=== PATIENT | female | born 1945 | race Caucasian/White ===

== ENCOUNTER 2023-01-28 11:10 | Outpatient (CLI) | payer MEDICARE, SELFPAY | END 2023-01-28 11:11 | disposition home or self-care (01) | LOC: AMB 01-31 10:32 | PROVIDERS: Visit Provider Family Medicine | DX: S09.90XA Unspecified injury of head, initial encounter (principal); Y04.0XXA Assault by unarmed brawl or fight, initial encounter; Y92.009 Unspecified place in unspecified non-institutional (private) residence as the place of occurrence of the external cause | CPT/HCPCS: A0425; A0429 ==

== ENCOUNTER 2023-01-28 11:31 | Observation (INO) | payer MEDICARE, SELFPAY ==
[2023-01-28] VITALS (41 sets, daily range): BP systolic 136–169; BP diastolic 57–88; PULSE 61–89; RESP 6–20; TEMP 36.2–36.8; O2SAT 93–98; BMI 23.8
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
--- NOTE | 2023-01-28 12:06 | ED.NURSE ---
Pt's daughter Nora called for an update. Pt verbal okay'd marketing copywriter to provide update. Update on pt condition provided to daughter.
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
[2023-01-28] MEDS: IBUPROFEN 200 MG TABLET 400 MG PO (12:36)
--- NOTE | 2023-01-28 13:04 | ED.NURSE ---
At this time, pt remains A&Ox4, CMS intact x4. Pupils remain PERRLA.
--- NOTE | 2023-01-28 13:10 | ED.NURSE ---
Addendum entered by Anthony Mcfadden RN 01/28/23 13:28: After MD Grove's assessment of lac, lac repair to be done with sutures rather than jan. Original Note: MD Grove in room for head lac repair with jan.
[2023-01-28 13:48] LABS: SARS PCR* Negative SARS-CoV-2 (Negative)
--- NOTE | 2023-01-28 13:49 | ED.NURSE ---
Pt ambulatory to restroom with minimal assistance of clinical nursing assistant.
--- NOTE | 2023-01-28 14:03 | ED.NURSE ---
Social Work in to speak with pt.
--- NOTE | 2023-01-28 14:20 | ED.NURSE ---
Report called to [facility].
[2023-01-28 14:28] LABS: Basophils Absolute Auto 0.03 K/uL (0.00-0.30); Basophils Percent Auto 0.3 % (0.0-3.0); Eosinophils Percent Auto 0.9 % (0.0-7.0); Hematocrit 40.2 % (33.0-51.0); Hemoglobin* 12.7 gm/dL (12.0-16.0); Immature Granulocytes Abs Auto 0.01 K/uL (0.00-0.30); Immature Granulocytes Pct Auto 0.1 %; Lymphocytes Percent Auto 10.2 % (20-44); Mean Corpuscular HGB Conc 32 gm/dL (32-36); Mean Corpuscular Hemoglobin 31 pg (26-34); Mean Corpuscular Volume 97 fL (80-100); Monocytes Percent Auto 5.2 % (0.0-11.0); Neutrophils Percent Auto 83.3 % (42.0-72.0); Platelet Count* 242 K/uL (140-440); RDW Coefficient of Variation % 13.6 % (11.5-15.5); Red Blood Count 4.14 m/uL (4.00-5.20); White Blood Count* 10.54 K/uL (4.50-11.00)
[2023-01-28 14:31] LABS: Slide Review Reflex No
[2023-01-28 14:40] LABS: Albumin* 3.9 g/dL (3.3-5.0); Chloride* 111 mmol/L (96-114); Potassium* 4.2 mmol/L (3.6-5.1); Sodium* 140 mmol/L (135-149)
[2023-01-28 14:42] LABS: Creatinine* 0.7 mg/dL (0.5-1.5); Estimated Glomerular Filt Rate 89 ml/min
[2023-01-28 14:43] LABS: Alanine Aminotransferase* 13 U/L (4-35); Alkaline Phosphatase* 117 U/L (40-150); Aspartate Amino Transferase* 26 U/L (12-35); Bilirubin Direct* 0.2 mg/dL (0.0-0.5); Bilirubin Total* 0.7 mg/dL (0.1-1.5); Blood Urea Nitrogen* 10 mg/dL (7-30); Calcium* 8.7 mg/dL (8.4-10.6); Carbon Dioxide* 22 mmol/L (20-32); Glucose* 98 mg/dL (60-115); INR 0.97 (0.91-1.10); Partial Thromboplastin Time* 27 Seconds (23-33); Prothrombin Time 13.4 Seconds; Total Protein* 7.3 g/dL (6.0-8.3)
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
--- NOTE | 2023-01-28 16:31 | CRLHL7_ITS ---
For Patients: As a result of the Cures Act, medical imaging exams and procedure reports are released immediately into your electronic medical record. You may view this report before your referring provider. If you have questions, please contact your health care provider. HISTORY: Shoulder pain. COMPARISON: None. FINDINGS: Three views of the right shoulder. There are moderate degenerative changes in the shoulder joints including narrowing and articular sclerosis of the glenohumeral joint space as well as narrowing and subchondral cystic changes of the subacromial joint space. No evidence for acute fracture or dislocation. Dictated by Romelia Klein MD @ 01/28/2023 6:38:24 PM (Electronically Signed)
--- NOTE | 2023-01-28 16:34 | CRLHL7_ITS ---
For Patients: As a result of the Century Cures Act, medical imaging exams and procedure reports are released immediately into your electronic medical record. You may view this report before your referring provider. If you have questions, please contact your health care provider. INDICATION: Bibasilar crackles TECHNIQUE: Chest radiograph 1 view COMPARISON: 08/20/2021 FINDINGS: Mediastinum: The mediastinum is normal in appearance. The heart silhouette is normal in size and morphology. Lung: Coarse interstitial infiltrates present bilaterally without interval change and consistent with pulmonary fibrosis. No sign of pleural effusion seen. No pneumothorax is identified. Bone and Soft tissue: Unremarkable for age. IMPRESSION: 1. Coarse interstitial infiltrates present bilaterally without interval change and consistent with pulmonary fibrosis. Dictated by Danny Mckoy MD @ 01/28/2023 6:42:16 PM Dictated by: Danny Mckoy MD @ 01/28/2023 18:42:21 (Electronically Signed)
[2023-01-28] MEDS: TETANUS/DIPHTH/PERTUSSIS 0.5 ML SYRINGE IM (18:35)
[2023-01-28] MEDS: ACETAMINOPHEN 325 MG TABLET 650 MG PO (21:46)
[2023-01-28] MEDS: SODIUM CHLORIDE 0.9 % (FLUSH) 10 ML SYRINGE 5 ML IVF (21:47)
--- NOTE | 2023-01-28 22:08 | PC.NURSE ---
[id number] Pt arrived to floor around 1500, neuros and admission completed. Pt denies chest pain, lightheaded/dizziness, headache and changes in vision. For approx 2 hours pt c/o burning numbness to bilateral feet which has since resolved. PRN tylenol administered x1. Pt ambulating with SBA to br, tolerating activity well. 7 external stitches present to head, no drainage noted. TDaP vaccination completed to [facility], pt tolerated well.
[2023-01-29 00:50] VITALS: BP 110/44; PULSE 59; PULSE 61; RESP 18; TEMP 36.2; O2SAT 95
[2023-01-29 03:30] VITALS: BP 121/45; PULSE 64; RESP 14; TEMP 36.7; O2SAT 95
[2023-01-29] MEDS: ACETAMINOPHEN 325 MG TABLET 650 MG PO (05:23)
--- NOTE | 2023-01-29 06:00 | CRLHL7_ITS ---
For Patients: As a result of the Century Cures Act, medical imaging exams and procedure reports are released immediately into your electronic medical record. You may view this report before your referring provider. If you have questions, please contact your health care provider. INDICATION: Follow-up subdural hematoma COMPARISON: January 28, 2023 at 11:50 a.m. TECHNIQUE: CT examination of the head was performed as axial sections without intravenous contrast. Images were obtained from the vertex of the skull through the skull base. The study was performed January 29, 2023 at 6:35 a.m.. Please note that all CT scans at this facility use dose modulation, iterative reconstruction, and/or weight-based dosing when appropriate to reduce radiation dose to as low as reasonably achievable. FINDINGS: Sulci and ventricles are overall of normal caliber for patient age. A left-sided subdural hematoma is again identified. This primarily overlies the left frontal convexity and maximally measures about 6 millimeters in depth. This is measured from axial series 2, image 35. This is essentially unchanged and has no significant mass effect upon the subjacent brain. No new or progressive hemorrhage. Left posterior frontal extra-axial mass 1.5 centimeters in greatest dimension probably a meningioma. MRI is offered for further evaluation at a clinically appropriate time. Re-demonstration of a known right frontal scalp laceration. No acute calvarial injury IMPRESSION: Left-sided subdural hematoma is essentially unchanged. Maximum depth is about 6 millimeters without significant mass effect upon the subjacent brain. No new or worsening hemorrhage. Findings likely representing a left posterior frontal meningioma measuring 1.5 centimeters. Follow-up evaluation of this is recommended at a clinically appropriate time. Please note that all CT scans at this facility use dose modulation, iterative reconstruction, and/or weight-based dosing when appropriate to reduce radiation dose to as low as reasonably achievable. Dictated by Bry Marrero MD @ 01/29/2023 7:05:38 AM (Electronically Signed)
--- NOTE | 2023-01-29 07:37 | PC.NURSE ---
Pt is alert and oriented x3.?Afebrile. Pt denies chest pain, SOB, and N/V. Pt reports 1/10 headache, managed with PRN Tylenol. Neuro checks have been unremarkable. Pt?s base lung sounds are slightly diminished with fine crackles.?Pt is tolerating a regular diet, voiding, and up SBA?to toilet.?Pt slept throughout most of night.?
[2023-01-29 08:04] VITALS: BP 137/67; PULSE 63; RESP 18; TEMP 36.8; O2SAT 97
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
[2023-01-29] MEDS: SODIUM CHLORIDE 0.9 % (FLUSH) 10 ML SYRINGE 5 ML IVF (09:43)
[2023-01-29 09:50] VITALS: BP 137/57; PULSE 69; RESP 14; TEMP 36.7
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
== END 2023-01-29 12:35 | disposition home or self-care (01) ==
LOC: ED 14:07 → MEDSURG 14:20
PROVIDERS: Admitting Provider Family Medicine; Emergency Provider Emergency Medicine; Visit Provider Family Medicine
DX: S06.5XAA Traumatic subdural hemorrhage with loss of consciousness status unknown, initial encounter (principal); S01.01XA Laceration without foreign body of scalp, initial encounter; I35.2 Nonrheumatic aortic (valve) stenosis with insufficiency; Y04.8XXA Assault by other bodily force, initial encounter; W18.09XA Striking against other object with subsequent fall, initial encounter; M79.641 Pain in right hand; D32.9 Benign neoplasm of meninges, unspecified; R01.1 Cardiac murmur, unspecified; R00.1 Bradycardia, unspecified; Z98.890 Other specified postprocedural states; Z98.84 Bariatric surgery status; Z90.89 Acquired absence of other organs; J84.10 Pulmonary fibrosis, unspecified; J98.4 Other disorders of lung
CPT/HCPCS: 12002; 36415; 70450; 71045; 72125; 73030; 73130; 80048; 80076; 85025; 85610; 85730; 87635; 90471; 90715; 93306; 99284; 99291; G0378; A9270; G0390

== ENCOUNTER 2023-02-20 10:07 | Emergency (ER) | payer MEDICARE, SELFPAY ==
[2023-02-20] VITALS (9 sets, daily range): BP systolic 130–151; BP diastolic 64–86; PULSE 60–77; RESP 18; TEMP 36.5; O2SAT 92–97; BMI 23.7
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
--- NOTE | 2023-02-20 10:51 | CRLHL7_ITS ---
For Patients: As a result of the Century Cures Act, medical imaging exams and procedure reports are released immediately into your electronic medical record. You may view this report before your referring provider. If you have questions, please contact your health care provider. CT ANGIOGRAM NECK DATE: 02/20/2023 CLINICAL HISTORY: Patient with left sided neck pain and disorientation. TECHNIQUE: Standard helical CT image acquisition of the neck up to the skull base after bolus intravenous contrast enhancement. 2D and 3D MIP images for post-processing were performed and interpreted on an independent workstation and 3D images were permanently archived. COMPARISON: CT same day. FINDINGS: There is moderate narrowing at the origin of the right subclavian artery. The origins of the rest of the great vessels from the aortic arch are patent. The origin of the right vertebral artery is patent. The origin of the left vertebral artery is patent. The common carotid arteries are patent. There is plaque without stenosis at the origin of the right internal carotid artery. There is plaque without stenosis at the origin of the left internal carotid artery. The rest of the cervical segments of the internal carotid arteries are patent up to the skull base. The left vertebral artery is dominant. The cervical segments of the vertebral arteries are patent up to the skull base. The visualized lung apices are unremarkable. The thyroid gland is unremarkable. The soft tissues of the neck are unremarkable. There are degenerative changes in the cervical spine. IMPRESSION: Moderate right subclavian artery origin stenosis. Patent rest of the cervical vasculature. Please note that all CT scans at this facility use dose modulation, iterative reconstruction, and/or weight-based dosing when appropriate to reduce radiation dose to as low as reasonably achievable. Dictated by: Benjamín Alvares MD @ 02/20/2023 11:57:37 (Electronically Signed)
--- NOTE | 2023-02-20 10:51 | CRLHL7_ITS ---
For Patients: As a result of the Century Cures Act, medical imaging exams and procedure reports are released immediately into your electronic medical record. You may view this report before your referring provider. If you have questions, please contact your health care provider. Indication: Left-sided neck pain with disorientation Technique: Volumetric multidetector CT images of the head were obtained without the administration of low osmolar intravenous contrast. Comparison: CT head January 29, 2023 Findings: There is a moderate left convexity subdural hematoma with effacement of the left cerebral hemisphere. There is demonstration of layering hematocrit level with dense material layering in a dependent fashion. There is no obvious hyperacute superimposed hemorrhage. There is approximately 6.5 millimeters of [id number] midline shift, new from comparison exam. There is age-related cortical atrophy with mild sulcal widening and ex vacuo dilatation of the lateral ventricles. There are chronic small vessel disease changes in the subcortical and periventricular white matter without lost khan-white differentiation. The orbits and their contents are grossly within normal limits. The bony calvarium is grossly intact. The paranasal sinuses are clear. The mastoid air cells are well aerated. Impression: Increased size of previously seen left convexity subdural hematoma from comparison measuring up to 1 centimeter with 6.5 millimeters of ikze-ks-cvshj midline shift. There is demonstration of layering hematocrit level commensurate with subacute hemorrhage. No obvious superimposed hyperacute hemorrhage is identified. Findings were discussed with Heather Parekh at 11:26 a.m. February 20, 20[address] Please note that all CT scans at this facility use dose modulation, iterative reconstruction, and/or weight-based dosing when appropriate to reduce radiation dose to as low as reasonably achievable. Dictated by Timothy Mullins MD @ 02/20/2023 11:26:48 AM (Electronically Signed)
--- NOTE | 2023-02-20 10:51 | CRLHL7_ITS ---
For Patients: As a result of the Century Cures Act, medical imaging exams and procedure reports are released immediately into your electronic medical record. You may view this report before your referring provider. If you have questions, please contact your health care provider. CT ANGIOGRAM HEAD DATE: 02/20/2023 CLINICAL HISTORY: Patient with disorientation. TECHNIQUE: Standard helical CT image acquisition through the intracranial circulation following intravenous administration of contrast material with bolus tracking. 2D and 3D MIP images for post-processing were performed and interpreted on an independent workstation and 3D images were permanently archived. COMPARISON: CT same day. FINDINGS: There is no proximal intracranial large vessel occlusion. There is no intracranial aneurysm. The right internal carotid artery is normal. The right middle cerebral artery and its branches are normal. The right anterior cerebral artery and its branches are normal. The left internal carotid artery is normal. The left middle cerebral artery and its branches are normal. The left anterior cerebral artery and its branches are normal. The anterior communicating artery is well visualized and appears normal. The right vertebral artery and PICA are normal. The left vertebral artery and PICA are normal. The left vertebral artery is dominant. The basilar artery is patent and appears normal. The right posterior cerebral artery is normal. The left posterior cerebral artery is normal. The visualized venous structures are patent. IMPRESSION: Patent proximal intracranial vasculature. Please note that all CT scans at this facility use dose modulation, iterative reconstruction, and/or weight-based dosing when appropriate to reduce radiation dose to as low as reasonably achievable. Dictated by: Benjamín Alvares MD @ 02/20/2023 11:59:22 (Electronically Signed)
[2023-02-20 11:15] LABS: Basophils Absolute Auto 0.04 K/uL (0.00-0.30); Basophils Percent Auto 0.5 % (0.0-3.0); Eosinophils Absolute Auto 0.19 K/uL (0.00-0.50); Eosinophils Percent Auto 2.6 % (0.0-7.0); Hematocrit 36.6 % (33.0-51.0); Hemoglobin* 11.8 gm/dL (12.0-16.0); Immature Granulocytes Abs Auto 0.01 K/uL (0.00-0.30); Immature Granulocytes Pct Auto 0.1 %; Mean Corpuscular HGB Conc 32 gm/dL (32-36); Mean Corpuscular Hemoglobin 32 pg (26-34); Mean Corpuscular Volume 98 fL (80-100); Monocytes Percent Auto 10.2 % (0.0-11.0); Neutrophils Absolute Auto 5.24 K/uL (1.7-7.0); Neutrophils Percent Auto 71.6 % (42.0-72.0); Platelet Count* 256 K/uL (140-440); RDW Coefficient of Variation % 14.9 % (11.5-15.5); Red Blood Count 3.75 m/uL (4.00-5.20); White Blood Count* 7.33 K/uL (4.50-11.00)
[2023-02-20 11:18] LABS: Slide Review Reflex No
[2023-02-20 11:18] LABS: Creatinine, Point-of-Care* 0.6 mg/dl (0.6-1.3)
[2023-02-20 11:28] LABS: Chloride* 110 mmol/L (96-114); Potassium* 4.1 mmol/L (3.6-5.1); Sodium* 140 mmol/L (135-149)
[2023-02-20 11:31] LABS: Carbon Dioxide* 22 mmol/L (20-32); Creatinine* 0.6 mg/dL (0.5-1.5); Estimated Glomerular Filt Rate 92 ml/min
[2023-02-20 11:32] LABS: Blood Urea Nitrogen* 14 mg/dL (7-30); Calcium* 8.2 mg/dL (8.4-10.6); Glucose* 79 mg/dL (60-115)
[2023-02-20 12:12] LABS: Appearance Urine Clear (Clear); Bilirubin Urine Negative (Negative); Blood Urine Negative (Negative); Color Urine Yellow (Yellow); Glucose Urine Negative (Negative); Ketones Urine Negative (Negative); Leukocyte Esterase Urine Negative (Negative); Nitrite Urine Negative (Negative); Protein Urine Negative (Negative); Urobilinogen Urine 0.2 (0.2-1.0); pH Urine 6.5 (5.0-8.5)
[2023-02-20 12:22] LABS: RBC Urine 0-2 (0-2); WBC Urine 0-2 (0-5)
--- NOTE | 2023-02-20 12:45 | PC.NURSE ---
report given to Paola at [facility] [place]
--- NOTE | 2023-02-20 13:08 | ED.NURSE ---
Pt keys left behind so her daughter can curing pickling packer her car later. Placed in a plastic bag, labeled, and placed in med room.
--- NOTE | 2023-02-20 13:27 | ED.NURSE ---
Pt's daughter arrived to pick and shovel man keys.
== END 2023-02-20 13:15 | disposition short-term general hospital (02) ==
PROVIDERS: Emergency Provider Family Medicine; PCP Family Medicine
DX: S06.5X0A Traumatic subdural hemorrhage without loss of consciousness, initial encounter (principal); W22.8XXA Striking against or struck by other objects, initial encounter
CPT/HCPCS: 36415; 70450; 70496; 70498; 72192; 80048; 81001; 82565; 85025; 93005; 99285; 99291; Q9967

== ENCOUNTER 2023-02-20 13:07 | Outpatient (CLI) | payer MEDICARE, SELFPAY | END 2023-02-20 13:08 | disposition home or self-care (01) | LOC: AMB 02-24 09:27 | PROVIDERS: PCP Family Medicine; Visit Provider Family Medicine | DX: I61.3 Nontraumatic intracerebral hemorrhage in brain stem (principal) | CPT/HCPCS: A0425; A0428 ==

== ENCOUNTER 2023-04-14 08:28 | Outpatient (RCR) | payer MEDICARE, SELFPAY | END 2023-05-19 13:20 | disposition home or self-care (01) | PROVIDERS: PCP Family Medicine; Visit Provider Family Medicine | DX: S80.11XA Contusion of right lower leg, initial encounter (principal); S39.92XA Unspecified injury of lower back, initial encounter; M62.81 Muscle weakness (generalized); Z51.89 Encounter for other specified aftercare | CPT/HCPCS: 97110; 97161; 97535 ==

== ENCOUNTER 2023-06-09 17:15 | Emergency (ER) | payer MEDICARE, SELFPAY ==
[2023-06-09 17:35] VITALS: BP 157/72; PULSE 65; RESP 16; TEMP 36.4; O2SAT 95; BMI 25.1
--- NOTE | 2023-06-09 17:57 | CRLHL7_ITS ---
For Patients: As a result of the Century Cures Act, medical imaging exams and procedure reports are released immediately into your electronic medical record. You may view this report before your referring provider. If you have questions, please contact your health care provider. INDICATION: Right calf pain and swelling. COMPARISON: Report of the ultrasound of the venous drainage of the right lower extremity from 08/23/2021. FINDINGS: Ultrasound of the venous drainage of both lower extremities was performed using real-time khan scale imaging (B mode 2D), color flow Doppler and spectral analysis. There is no evidence of deep venous thrombosis. There is normal antegrade flow from the posterior tibial and peroneal veins superiorly through the common femoral vein in both legs. There is normal augmentation and compressibility of these veins. The greater saphenous veins in both thighs are widely patent. IMPRESSION: No evidence of deep or superficial venous thrombosis on ultrasound examination of both lower extremities. Dictated by Jay Epstein MD @ 06/09/2023 8:10:28 PM (Electronically Signed)
--- NOTE | 2023-06-09 18:21 | ED.GENADULT ---
HPI - General Adult General Date Seen: 06/09/23 Chief complaint: Extremity Pain/Injury, Lower Stated complaint: Needs head CT, possible blood clot R leg Time Seen by Provider: 06/09/23 17:41 Source: patient Mode of arrival: ambulatory Limitations: no limitations History of Present Illness HPI narrative: Patient is a 77-year-old woman who presents saying that she has been having pain in her legs for a while now. She says that she gets pain after she does her physical therapy exercises that were recommended after she had brain surgery earlier this year. She does not get pain during the exercises. She says that she will get redness at her ankles where her socks hit. She is very frustrated because she is not supposed to take ibuprofen which she says is what helps her symptoms. She says that Tylenol gives her ?a buzz', and she has asked her neurologist when she can stop taking Tylenol, but she says that she was told she would need a bunch of tests to determine when she could stop taking Tylenol and it was going to cost 250 dollars so she did not want to do that. As result, she has continued to take Tylenol and she says that makes her leg symptoms worse. She says she looked on [employer] and she has all the symptoms of blood clots and wants to make sure that she rules this out. She does note that as of today her symptoms are all gone. She also tells me that her clinic doctor told her that she was going to call the ER and ask us to do a head CT to make sure that everything looked good after her surgery, she says that the clinic was going to do it but then told her that they could not do it from the clinic and she should come to the ER instead. Related Data Previous Rx's Medication Instructions Recorded acetaminophen 325 mg tablet 650 mg (2 x 325 mg) PO Q6H PRN 01/29/23 Pain #100 tabs Allergies Allergy/AdvReac Type Severity Reaction Status Date / Time hydroxyzine AdvReac Severe Seizure Verified 06/09/23 17:31 Review of Systems Status of ROS: Reports: 6 or more systems reviewed and unremarkable except as noted in History and below [facility] Medical History History of depression ?Z86.59 - Personal history of other mental and behavioral disorders (ICD-10) Sinus bradycardia ?R00.1 - Bradycardia, unspecified (ICD-10) Pulmonary fibrosis ?J84.10 - Pulmonary fibrosis, unspecified (ICD-10) Meningioma ?D32.9 - Benign neoplasm of meninges, unspecified (ICD-10) Rheumatic fever with cardiac involvement ?I01.9 - Acute rheumatic heart disease, unspecified (ICD-10) Bibasilar crackles ?R09.89 - Other specified symptoms and signs involving the circulatory and respiratory systems (ICD-10) Murmur, cardiac ?R01.1 - Cardiac murmur, unspecified (ICD-10) Seizures ?R56.9 - Unspecified convulsions (ICD-10) Surgical History History of gastric bypass (1986) ?Z98.84 - Bariatric surgery status (ICD-10) History of section (1986) ?Z98.891 - History of uterine scar from previous surgery (ICD-10) Hx of tonsillectomy ?Z90.89 - Acquired absence of other organs (ICD-10) Family History Sister Breast cancer Scleroderma Seizure Father Major depression Grandfather Stroke Grandmother Stroke Social History Narrative: Lifelong nontobacco user. Denies alcohol use or recreational drugs. Does not have regular exercise regimen. 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 Smoking Status: Never smoker How often do you have a drink containing alcohol: never How often do you have six or more drinks on one occasion: Never AUDIT-C Alcohol total score: 0 Non-prescribed substance use: denies use Caffeine: Yes (soda) service: No Exam Narrative: Exam Narrative: Vital signs as noted above. In general, an alert, well-appearing patient. Head: Normocephalic, atraumatic. Eyes: Pupils are equal reactive. Extraocular movements are full. Conjunctivae are normal. ENT: Mucous membranes are moist. Neck: Supple without lymphadenopathy. Heart: Regular rate and rhythm. No murmur or rub. Lungs: Clear bilaterally. No increased work of breathing, crackles or wheezes. Abdomen: Soft and nontender. No organomegaly. Extremities: Well perfused. No edema. No calf tenderness. Pulses intact. Neurologic: Patient is alert and oriented to person and place. Speech is fluent. Face is symmetric. Moves all extremities equally. Affect: Normal. Skin: Warm and dry. Well perfused. Const: Vital Signs, click to edit/add: Vital Signs - 24 hr 06/09/23 17:35 Temperature 97.6 F Pulse Rate [Pulse Oximeter] 65 Respiratory Rate 16 Blood Pressure [Ri ght Upper Arm] 157/72 H Pulse Oximetry 95 Oxygen Delivery Me thod Room Air Course Course Hospital Course: Discussed with her that I would not recommend doing head CT today given that she is wanting to do this just as a follow-up to see how things look after surgery. If she would like to discuss that further with her primary doctor she certainly can. We did not receive any kind of call from Dr. Newell, and it is not accurate that this could not be ordered from the clinic if so desired. In terms of her legs, her exam is normal. I will order ultrasounds to make sure she does not have any evidence of DVT. Otherwise, it does not sound like she has evidencing claudication given that she does not have pain during exercise. She has good pulses. She does not have any evidence of decreased circulation today. No evidence of cellulitis. If ultrasounds are negative and symptoms return, would have her discuss this with primary care. Radiology read of her ultrasound is negative. Discharge home, primary care follow-up for ongoing concerns. Vital Signs Vital signs: Initial Vital Signs Temperature 97.6 F 06/09/23 17:35 Temperature Source Temporal Artery Scan 06/09/23 17:35 Pulse Rate 65 06/09/23 17:35 Pulse Rhythm Regular 06/09/23 17:35 Pulse Strength 3+ Normal 06/09/23 17:35 Respiratory Rate 16 06/09/23 17:35 Blood Pressure 157/72 H 06/09/23 17:35 Blood Pressure Mean 100 06/09/23 17:35 Blood Pressure Position Sitting 06/09/23 17:35 Pulse Oximetry 95 06/09/23 17:35 Oxygen Delivery Method Room Air 06/09/23 17:35 Vital Signs Temperature 97.6 F 06/09/23 17:35 Pulse Rate 65 06/09/23 17:35 Respiratory Rate 16 06/09/23 17:35 Blood Pressure 157/72 H 06/09/23 17:35 Pulse Oximetry 95 06/09/23 17:35 Oxygen Delivery Method Room Air 06/09/23 17:35 Temperature 97.6 F 06/09/23 17:35 Pulse Rate 65 06/09/23 17:35 Respiratory Rate 16 06/09/23 17:35 Blood Pressure 157/72 H 06/09/23 17:35 Pulse Oximetry 95 06/09/23 17:35 Oxygen Delivery Method Room Air 06/09/23 17:35 Discharge Plan Discharge Clinical Impression: Leg pain Patient Disposition: Home, Self-Care Condition: Improved Instructions: Leg Cramps (ED) Additional Instructions: Your ultrasound today does not show any evidence of blood clots in either leg. You do not have to take Tylenol if you do not want to. Follow-up with Dr. Newell as needed for ongoing concerns. Prescriptions: No Action acetaminophen 325 mg Tablet 650 mg PO Q6H PRN (Reason: Pain) Qty: 100 0RF Follow Up/Referrals: Sada Newell DO [Primary Care Provider] - Stand Alone Forms: [facility] Info Instructions
--- NOTE | 2023-06-09 18:32 | ED.NURSE ---
Pt changed into gown, per U/S request. Pt up to BR. [place] available at bedside for Pt comfort.
== END 2023-06-09 20:02 | disposition home or self-care (01) ==
PROVIDERS: Emergency Provider Emergency Medicine; PCP Family Medicine
DX: M79.606 Pain in leg, unspecified (principal)
CPT/HCPCS: 93970; 99283; 99284

== ENCOUNTER 2023-11-23 14:26 | Emergency (ER) | payer MEDICARE, SELFPAY ==
[2023-11-23 14:36] VITALS: BP 192/70; PULSE 67; RESP 20; TEMP 36.8; O2SAT 97; BMI 23.0
[2023-11-23 15:08] LABS: Appearance Urine Clear (Clear); Bilirubin Urine Negative (Negative); Blood Urine Trace-intact (Negative); Color Urine Yellow (Yellow); Glucose Urine Negative (Negative); Ketones Urine Negative (Negative); Leukocyte Esterase Urine 1+ (Negative); Nitrite Urine Negative (Negative); Protein Urine Negative (Negative); Specific Gravity Urine <= 1.005 (1.000-1.030); Urobilinogen Urine 0.2 (0.2-1.0); pH Urine 5.5 (5.0-8.5)
[2023-11-23 15:19] LABS: Bacteria Urine Moderate; RBC Urine 0-2 (0-2); Squamous Epithelial Cell Urine Few (None-Few)
--- NOTE | 2023-11-23 15:26 | CRLHL7_ITS ---
For Patients: As a result of the Century Cures Act, medical imaging exams and procedure reports are released immediately into your electronic medical record. You may view this report before your referring provider. If you have questions, please contact your health care provider. CLINICAL HISTORY: Right lower extremity leg pain TECHNIQUE: A compression venous ultrasound exam was performed of the right lower extremity using khan-scale imaging, color Doppler and spectral Doppler analysis. FINDINGS: Sonographic imaging of the right lower extremity demonstrates normal compressibility and color Doppler venous blood flow within the common femoral vein, deep femoral vein, and the proximal greater saphenous vein. Within the thigh, the femoral vein is patent and compressible. At a lower level, the popliteal and posterior tibial veins also show normal compressibility and color Doppler venous blood flow. Limited imaging of the contralateral groin demonstrates a normal spectral waveform and color Doppler venous blood flow within the left common femoral vein. IMPRESSION: No evidence of deep vein thrombosis within the right lower extremity. Dictated by Mara Steele MD @ 11/23/2023 5:33:33 PM (Electronically Signed)
--- NOTE | 2023-11-23 15:28 | ED.GENADULT ---
HPI - General Adult General Chief complaint: Extremity Pain/Injury, Lower Stated complaint: Right Leg and hip pain Time Seen by Provider: 11/23/23 15:04 History of Present Illness HPI narrative: This 78-year-old female comes in reporting pain in her right lower extremity that began this morning upon awakening. She does not report any injury event or strenuous activity. She states that the pain is located mostly below her knee but at times it shoots up from her knee also toward her hip. She states that there is a level of constant pain but sometimes there is significant brief increase in pain. She is ambulatory. She is not on any anticoagulants. Related Data Previous Rx's Medication Instructions Recorded acetaminophen 325 mg tablet 650 mg (2 x 325 mg) PO Q6H PRN 01/29/23 Pain #100 tabs hydrocodone 5 mg-acetaminophen 325 1 tab PO Q4-6H PRN pain #10 tabs 11/23/23 mg tablet Allergies Allergy/AdvReac Type Severity Reaction Status Date / Time hydroxyzine AdvReac Severe Seizure Verified 06/09/23 17:31 Review of Systems Status of ROS: Reports: 10 or more systems reviewed and unremarkable except as noted in History and below Narrative: Constitutional: No fevers, no weight gain or loss. Eyes: No discharge. No vision changes. HENT: No congestion, no sore throat, no ear pain. Cardiovascular: No chest pain, no palpitations. Respiratory: No shortness of breath, no wheezes, no cough. Gastrointestinal: No abdominal pain, no vomiting, no diarrhea. Genitourinary: No dysuria, no hematuria. Musculoskeletal: Normal range of motion. Skin: No rashes, no pruritis. Neurological: No dizziness, weakness, sensory change, speech change. Endo/Heme/Allergies: No bruising or bleeding. No polydipsia. Pysch: no suicidality, no anxiety, no insomnia. All other systems reviewed and are negative. [facility] Medical History History of depression ?Z86.59 - Personal history of other mental and behavioral disorders (ICD-10) Sinus bradycardia ?R00.1 - Bradycardia, unspecified (ICD-10) Pulmonary fibrosis ?J84.10 - Pulmonary fibrosis, unspecified (ICD-10) Meningioma ?D32.9 - Benign neoplasm of meninges, unspecified (ICD-10) Rheumatic fever with cardiac involvement ?I01.9 - Acute rheumatic heart disease, unspecified (ICD-10) Bibasilar crackles ?R09.89 - Other specified symptoms and signs involving the circulatory and respiratory systems (ICD-10) Murmur, cardiac ?R01.1 - Cardiac murmur, unspecified (ICD-10) Seizures ?R56.9 - Unspecified convulsions (ICD-10) Surgical History History of gastric bypass (1986) ?Z98.84 - Bariatric surgery status (ICD-10) History of section (1986) ?Z98.891 - History of uterine scar from previous surgery (ICD-10) Hx of tonsillectomy ?Z90.89 - Acquired absence of other organs (ICD-10) Family History Sister Breast cancer Scleroderma Seizure Father Major depression Grandfather Stroke Grandmother Stroke Social History Narrative: Lifelong nontobacco user. Denies alcohol use or recreational drugs. Does not have regular exercise regimen. 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 Smoking Status: Never smoker Do you use any of these nicotine containing products: None How often do you have a drink containing alcohol: never How often do you have six or more drinks on one occasion: Never AUDIT-C Alcohol total score: 0 Non-prescribed substance use: denies use Caffeine: Yes (soda) service: No Exam Narrative: Exam Narrative: Constitutional: Well-developed, well-nourished, no acute distress. HEENT: Normocephalic, atraumatic. Neck: Normal range of motion. Nontender. Supple. Heart: Regular. No murmurs. Normal rate. Intact distal pulses. Lungs: Clear to auscultation. No chest discomfort. No wheezes, rhonchi, or rales. Abdomen: Normal bowel sounds. Nontender. No rebound tenderness. Genitalia: Deferred. Back: No midline tenderness. Normal range of motion. Extremities: Normal range of motion. No injury. She is able to lift her right leg from the bed. No pain when log-rolling her leg or stressing her pelvis. Skin: Intact. No rash. Warm. No erythema or pallor. Neurologic: No altered sensation. No weakness. Alert and oriented. Psychiatric: No suicidality. No anxiety or depression. No insomnia. Nursing notes and vitals signs are reviewed. Const: Vital Signs, click to edit/add: Vital Signs - 24 hr 11/23/23 14:36 Temperature 98.2 F Pulse Rate [Pulse Oximeter] 67 Respiratory Rate 20 Blood Pressure [Ri ght Forearm] 192/70 H Pulse Oximetry 97 Oxygen Delivery Me thod Room Air Course Vital Signs Vital signs: Initial Vital Signs Temperature 98.2 F 11/23/23 14:36 Temperature Source Temporal Artery Scan 11/23/23 14:36 Pulse Rate 67 11/23/23 14:36 Pulse Rhythm Regular 11/23/23 14:36 Respiratory Rate 20 11/23/23 14:36 Blood Pressure 192/70 H 11/23/23 14:36 Blood Pressure Mean 110 H 11/23/23 14:36 Blood Pressure Position Sitting 11/23/23 14:36 Pulse Oximetry 97 11/23/23 14:36 Oxygen Delivery Method Room Air 11/23/23 14:36 Vital Signs Temperature 98.2 F 11/23/23 14:36 Pulse Rate 67 11/23/23 14:36 Respiratory Rate 20 11/23/23 14:36 Blood Pressure 192/70 H 11/23/23 14:36 Pulse Oximetry 97 11/23/23 14:36 Oxygen Delivery Method Room Air 11/23/23 14:36 Temperature 98.2 F 11/23/23 14:36 Pulse Rate 67 11/23/23 14:36 Respiratory Rate 20 11/23/23 14:36 Blood Pressure 192/70 H 11/23/23 14:36 Pulse Oximetry 97 11/23/23 14:36 Oxygen Delivery Method Room Air 11/23/23 14:36 Medical Decision Making MDM Narrative Medical decision making narrative: This patient comes in reporting pain in her right lower extremity. She is concerned about a blood clot. An ultrasound is completed and shows no evidence of thrombus. Patient has a normal exam and there was no particular injury event. She states that she does have a previous report that there was some degenerative change in her right hip joint. She awoke with pain today and may have some home acquired some nerve impingement causing shooting pain down her leg. She is ambulatory and able to be discharged home. I advised her to follow-up with orthopedic clinic if not improving. She did receive a prescription for some tablets of [place]. Lab Data Labs: Lab Results 11/23/23 Range/Units 15:03 Urine Color Yellow (Yellow) Urine Appearance Clear (Clear) Urine pH 5.5 (5.0-8.5) Ur Specific [place] <= 1.005 (1.000-1.030) Urine Protein Negative (Negative) Urine Glucose (UA) Negative (Negative) Urine Ketones Negative (Negative) Urine Blood Trace-intact A (Negative) Urine Nitrite Negative (Negative) Urine Bilirubin Negative (Negative) Urine Urobilinogen 0.2 (0.2-1.0) Ur Leukocyte Esterase 1+ A (Negative) Urine RBC 0-2 (0-2) Urine WBC 5-10 A (0-5) Ur Squamous Epith Cells Few (None-Few) Urine Bacteria Moderate A (None) Discharge Plan Discharge Clinical Impression: Acute leg pain Patient Disposition: Home, Self-Care Condition: Stable Additional Instructions: Take medication as needed and indicated. Follow-up with orthopedic clinic if not improving or worsening. Call [phone] for appointment. Prescriptions: New hydrocodone-acetaminophen 5-325 mg tablet 1 tab PO Q4-6H PRN (Reason: pain) Qty: 10 0RF No Action acetaminophen 325 mg Tablet 650 mg PO Q6H PRN (Reason: Pain) Qty: 100 0RF Follow Up/Referrals: Sada Newell DO [Primary Care Provider] - Stand Alone Forms: [employer] Info Instructions
--- NOTE | 2023-11-24 01:36 | ED.NURSE ---
Patient called questing assistance with what she should do for the worsening pain in her leg since discharge. She states that the pain medication that was prescribed is not helping and that she has already taken 2 doses. Patient stated that she wanted to take ibuprofen but wasn't sure if she could with the prescribed medications. Patient educated that she can take the ibuprofen if that is not contraindicated by her PCP on a regular basis. Patient states that she feels like her foot is just a brick and that she is having some numbness. RN stated to the patient that if she was unable to manage the pain at home or that her symptoms where changing that she should be seen again for the changes in her condition.
== END 2023-11-23 17:36 | disposition home or self-care (01) ==
PROVIDERS: Emergency Provider Emergency Medicine Emergency Medical Services; PCP Family Medicine
DX: M79.661 Pain in right lower leg (principal)
CPT/HCPCS: 81001; 87086; 87186; 93971; 99283; 99284

== ENCOUNTER 2023-11-24 08:33 | Emergency (ER) | payer MEDICARE, SELFPAY ==
[2023-11-24 08:41] VITALS: BP 180/84; PULSE 60; RESP 18; TEMP 36.6; O2SAT 97; BMI 21.5
--- NOTE | 2023-11-24 08:51 | ED.GENADULT ---
HPI - General Adult General Time Seen by Provider: 08:51 Date Seen: 11/24/23 Chief complaint: Extremity Pain/Injury, Lower Stated complaint: pain in R leg, thinks she also has a brain bleed Time Seen by Provider: 11/24/23 08:43 Source: patient and RN notes reviewed Mode of arrival: ambulatory Limitations: no limitations History of Present Illness HPI narrative: Patient is a 78-year-old female whom essentially tells me immediately that she is demanding a head CT. I ask her to please back up in slow down, would like to understand her history better. I did review with her that I had reviewed old records, was aware that she did have a brain bleed in February of 2023. She had had a brain bleed in January, the february head CT showed increasing subdural. She ended up at [facility] they do report she had surgery. She woke up with right leg pain yesterday, essentially is bothering her more when she tries to walk. She gets sharp shooting pain from her knee down into the foot. The longer she is up, will feel it up into the hip and into her right buttock. She did have motor changes when she had her subdural hematoma, reports she was having problems lifting her leg. She does seem frustrated, refers back into the history where she has been refused a head CT reportedly. I really have no clue as to these events. Reviewed with her that I certainly can do a head CT today, particularly with her history and increased headache. She denies any recent falls, no new trauma. Her daughter is with her. I have reviewed her ED visit from yesterday where she had an ultrasound of the leg and there was no DVT. She was prescribed Vicodin. In the nursing notes it states she did not try this overnight. She does tell me that she tried it. She is still having pain in the leg and is here for that, also once a head CT. There is no reported numbness tingling. It is pain in the leg with ambulation inactivity, no reported motor issues at this time. Related Data Previous Rx's Medication Instructions Recorded acetaminophen 325 mg tablet 650 mg (2 x 325 mg) PO Q6H PRN 01/29/23 Pain #100 tabs hydrocodone 5 mg-acetaminophen 325 1 tab PO Q4-6H PRN pain #10 tabs 02/11/24 mg tablet ondansetron HCl 4 mg tablet 4 mg PO Q6H PRN nausea and 11/24/23 vomiting #10 tabs oxycodone 5 mg tablet 5 mg PO Q6H PRN pain #10 tabs 11/24/23 prednisone 20 mg tablet 20 mg PO BID #10 tabs 11/24/23 Allergies Allergy/AdvReac Type Severity Reaction Status Date / Time hydroxyzine AdvReac Severe Seizure Verified 06/09/23 17:31 Review of Systems Status of ROS: Reports: 6 or more systems reviewed and unremarkable except as noted in History and below [facility] Medical History History of depression ?Z86.59 - Personal history of other mental and behavioral disorders (ICD-10) Sinus bradycardia ?R00.1 - Bradycardia, unspecified (ICD-10) Pulmonary fibrosis ?J84.10 - Pulmonary fibrosis, unspecified (ICD-10) Meningioma ?D32.9 - Benign neoplasm of meninges, unspecified (ICD-10) Rheumatic fever with cardiac involvement ?I01.9 - Acute rheumatic heart disease, unspecified (ICD-10) Bibasilar crackles ?R09.89 - Other specified symptoms and signs involving the circulatory and respiratory systems (ICD-10) Murmur, cardiac ?R01.1 - Cardiac murmur, unspecified (ICD-10) Seizures ?R56.9 - Unspecified convulsions (ICD-10) Surgical History History of gastric bypass (1986) ?Z98.84 - Bariatric surgery status (ICD-10) History of section (1986) ?Z98.891 - History of uterine scar from previous surgery (ICD-10) Hx of tonsillectomy ?Z90.89 - Acquired absence of other organs (ICD-10) Family History Sister Breast cancer Scleroderma Seizure Father Major depression Grandfather Stroke Grandmother Stroke Social History Narrative: Lifelong nontobacco user. Denies alcohol use or recreational drugs. Does not have regular exercise regimen. 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 Smoking Status: Never smoker Do you use any of these nicotine containing products: None How often do you have a drink containing alcohol: never How often do you have six or more drinks on one occasion: Never AUDIT-C Alcohol total score: 0 Non-prescribed substance use: denies use Caffeine: Yes (soda) service: No Exam Const: Vital Signs, click to edit/add: Vital Signs - 24 hr 11/24/23 08:41 Temperature 97.9 F Pulse Rate [Pulse Oximeter] 60 Respiratory Rate 18 Blood Pressure [Ri ght Upper Arm] 180/84 H Pulse Oximetry 97 Oxygen Delivery Me thod Room Air Soledad is alert, interactive, no apparent distress. Pupils are equal, small, conjugate gaze, sclera clear. Symmetrical facial function. Speech is normal. CV regular rate and rhythm, no murmur, breathing easily on room air, speech is normal. Lungs are clear, no wheezing or crackles. Lower extremities without edema, no overlying skin changes. Range of motion of her right knee does not reproduce any pain, there is no joint effusion. Internal and external rotation of her hip do not reproduce her pain. Strength in her lower extremities is 5/5 and symmetric, normal light touch sensation. No changes of skin coloration or warmth on either side. She has a positive straight leg raise on the right which gives her sharp shooting pain reportedly in the right lower extremity. Documenting provider has reviewed patient's vital signs: yes Course Course ED Course: Patient is convinced that her brain bleed is back and is causing her right leg symptoms. I did review with her that we certainly will be getting a head CT. There is certainly an alternate explanation which is sciatica which I suspect more given her current symptoms. We will do lumbar x-rays. Have reviewed with her for head CT showing no changes, she is going to need to except treatment for sciatica. I have reviewed that there is no quick fix for sciatica. Will review this further with her once I have her head CT and her lumbar x-rays. Reevaluation(s) Time of Reevaluation #1: 10:17 Reevaluation #1: Have discussed with them that the head CT is indeed negative for any intracranial bleeding. Did review that her exam is consistent with a lumbar radiculopathy. I do see degenerative changes. I do not think that this is vascular in nature at all. She has clinical exam consistent with radiculopathy. Did discuss conservative management, expectations with a conservative management. She states Tylenol just does not work for her. Reviewed with her that I do recommend trying this baseline. She is nauseated, likely the Vicodin has cause some nausea. She does not feel it helped at all. Will have her put the Vicodin away, will try Zofran an oxycodone. Discussed prednisone is mainstay and treatment for this as the anti-inflammatory affect is needed. She does use ibuprofen at home. Reviewed with her that ibuprofen actually can increase risk of bleeding. They are thinking it was Tylenol. Discussed the need for physical therapy and follow up in clinic. Reviewed MRI indications, we do not do this emergently out of the ER in this nature. She does need to watch for motor complications and this was reviewed. Will provide handout. Vital Signs Vital signs: Initial Vital Signs Temperature 97.9 F 11/24/23 08:41 Temperature Source Temporal Artery Scan 11/24/23 08:41 Pulse Rate 60 11/24/23 08:41 Respiratory Rate 18 11/24/23 08:41 Blood Pressure 180/84 H 11/24/23 08:41 Blood Pressure Mean 116 H 11/24/23 08:41 Pulse Oximetry 97 11/24/23 08:41 Oxygen Delivery Method Room Air 11/24/23 08:41 Vital Signs Temperature 97.9 F 11/24/23 08:41 Pulse Rate 60 11/24/23 08:41 Respiratory Rate 18 11/24/23 08:41 Blood Pressure 180/84 H 11/24/23 08:41 Pulse Oximetry 97 11/24/23 08:41 Oxygen Delivery Method Room Air 11/24/23 08:41 Temperature 97.9 F 11/24/23 08:41 Pulse Rate 60 11/24/23 08:41 Respiratory Rate 18 11/24/23 08:41 Blood Pressure 180/84 H 11/24/23 08:41 Pulse Oximetry 97 11/24/23 08:41 Oxygen Delivery Method Room Air 11/24/23 08:41 Medications Administered Medications: Discontinued Medications Generic Name Dose Route Start Last Admin Trade Name Freq PRN Reason Stop Dose Admin Ondansetron HCl 4 mg 11/24/23 10:14 11/24/23 10:34 Ondansetron Odt 4 Mg Tab PO 11/24/23 10:15 4 mg ONCE ONE Administration Oxycodone HCl 5 mg 11/24/23 10:14 11/24/23 10:33 Oxycodone 5 Mg Tablet PO 11/24/23 10:15 5 mg ONCE ONE Administration Medical Decision Making Imaging Data CT scan - head: Attestation: I have reviewed the pertinent imaging results. My impression: I do not see any acute bleeds or traumatic change on her head CT, reviewed the old CT from February, could see her subdural hematoma at that point. Radiologist's impression: Verbal report per the radiologist is that her head CT is negative for subdural or bleed. The radiology system is down, this was read by the in-house radiologist that we do have here at this time. Formal written report is not available. XR lumbar spine: Attestation: I have reviewed the pertinent imaging results. My impression: I do see degenerative changes, decreased disc space between L5-S1. There is also calcifications noted of the vasculature. Await Radiology over-read. Radiologist's impression: Patient: Soledad Lyn MR#: [id number] : 1945 Acct:[id number] Loc: ED Service Date: 11/24/[address]: Ordering Physician: Norma Chen M.D. Date of Service: 11/24/23 Procedure(s): XR lumbar spine 2-3V Accession Number(s): [id number] cc: Norma Chen M.D.; Sada Newell D.O.~ LUMBAR SPINE THREE VIEWS. COMPARISON: CT CHEST 08/20/2021. INDICATION: RIGHT SCIATICA. FINDINGS: CHRONIC WEDGE COMPRESSION DEFORMITY T12. NO ADDITIONAL FRACTURE. VASCULAR CALCIFICATIONS. POSTOP CHANGES. DEGENERATE FACET ARTHROPATHY. RIGHTWARD CURVATURE. IMPRESSION: NO ACUTE FRACTURE. Final report reviewed after patient discharge, no change in plan. Discharge Plan Discharge Clinical Impression: Acute right lumbar radiculopathy Headache Qualifiers: Headache type: unspecified Headache chronicity pattern: acute headache Patient Disposition: Home, Self-Care Condition: Stable Instructions: Lumbar Radiculopathy (ED) Additional Instructions: Start prednisone and take as prescribed. Recommend taking the prednisone with food to help protect her stomach. Baseline for pain, recommend Tylenol 1000 mg 3 times a day, can use for 1-2 weeks. Will send a new prescription for oxycodone in, use as prescribed. This is narcotic. May need to use MiraLax and or senna to prevent narcotic associated constipation while using this medicine. Can supplement with ibuprofen per bottle directions if it is okay from a prior neurologic standpoint from your history of a brain bleed. You obviously have been taking it without complication as of this point. Need to schedule physical therapy, referral provided. You need a clinic follow-up within the next week, please contact either [place] or [facility] to get this scheduled. If your symptoms are not improving with outlined measures, MRI of your spine may need to be obtained. This would be ordered through the clinic. Will send in Zofran to help with any nausea, narcotic certainly can make people nauseated as well. Stop the hydrocodone/acetaminophen (norco/vicodin are the brand names) while on the oxycodone. Activity Level: Activity as Tolerated Prescriptions: New oxycodone 5 mg tablet 5 mg PO Q6H PRN (Reason: pain) Qty: 10 0RF prednisone 20 mg tablet 20 mg PO BID Qty: 10 0RF ondansetron HCl 4 mg tablet 4 mg PO Q6H PRN (Reason: nausea and vomiting) Qty: 10 0RF No Action acetaminophen 325 mg Tablet 650 mg PO Q6H PRN (Reason: Pain) Qty: 100 0RF hydrocodone-acetaminophen 5-325 mg tablet 1 tab PO Q4-6H PRN (Reason: pain) Qty: 10 0RF Follow Up/Referrals: Sada Newell DO [Primary Care Provider] - Stand Alone Forms: [employer] Info Instructions
--- NOTE | 2023-11-24 09:05 | XR_ITS ---
LUMBAR SPINE THREE VIEWS. COMPARISON: CT CHEST 08/20/2021. INDICATION: RIGHT SCIATICA. FINDINGS: CHRONIC WEDGE COMPRESSION DEFORMITY T12. NO ADDITIONAL FRACTURE. VASCULAR CALCIFICATIONS. POSTOP CHANGES. DEGENERATE FACET ARTHROPATHY. RIGHTWARD CURVATURE. IMPRESSION: NO ACUTE FRACTURE.
--- NOTE | 2023-11-24 09:05 | CT_ITS ---
CT BRAIN WITHOUT CONTRAST TECHNIQUE: ROUTINE NONCONTRAST CT BRAIN COMPARISON: 02/20/2023 INDICATION: HEADACHE, HISTORY BRAIN BLEED FINDINGS: THERE IS NO ACUTE INTRACRANIAL HEMORRHAGE. POSTOP CHANGES LEFT FRONTAL CRANIECTOMY. NO MIDLINE SHIFT OR HYDROCEPHALUS. CHRONIC LACUNAR INFARCT. CHRONIC MILD SMALL VESSEL ISCHEMIC CHANGES. SINUSES CLEAR. IMPRESSION: NO ACUTE INTRACRANIAL HEMORRHAGE. COMMUNICATED TO THE EMERGENCY DOCTOR..
[2023-11-24] MEDS: OXYCODONE 5 MG TABLET PO (10:33)
[2023-11-24] MEDS: ONDANSETRON ODT 4 MG TAB PO (10:34)
--- NOTE | 2023-11-25 08:41 | ED.NURSE ---
Urine culture came back as Klebsiella pneumoniae from 11/23/23. Spoke with pt- she was having frequency, urgency, burning on Friday. Drank a bunch of water and seems better. Per Dr. Beltran, treat with Kephlex 250mg BID X5 days and encourage patient to follow up with PCP in the next week. Pt wanted it called into [facility]. This was completed.
== END 2023-11-24 10:54 | disposition home or self-care (01) ==
PROVIDERS: Emergency Provider Family Medicine; PCP Family Medicine
DX: M54.16 Radiculopathy, lumbar region (principal); R51.9 Headache, unspecified
CPT/HCPCS: 70450; 72100; 99284; 99285; A9270

== ENCOUNTER 2023-11-26 11:36 | Emergency (ER) | payer MEDICARE, SELFPAY ==
[2023-11-26 11:44] VITALS: BP 185/87; PULSE 66; RESP 18; TEMP 37.3; O2SAT 95; BMI 23.6
--- NOTE | 2023-11-26 12:18 | XR_ITS ---
INDICATION Fall, pain. TECHNIQUE AP pelvis and 2 views right hip. COMPARISON: 02/05/2023 FINDINGS Narrowing and spurring at the right hip joint. No femoral neck fracture. Incidental synovial herniation pit. Mild degenerative changes at the sacroiliac joints and symphysis pubis. IMPRESSION Moderate degenerative joint disease right hip. No sign of acute injury.
--- NOTE | 2023-11-26 12:19 | ED_ITS ---
HPI - Fall General Chief Complaint: Fall/Minor Trauma Stated Complaint: Fall Time Seen by Provider: 11/26/23 12:08 History of Present Illness HPI Narrative: This 78-year-old female comes in for evaluation of an injury from a fall that occurred just prior to arrival. She states that she was using her walker and had difficulty crossing a threshold and fell onto her right buttock. She did not hit her head or have loss of consciousness. She states that she was able to get up and ambulate. She does not report any other injury. Related Data Previous Rx's Medication Instructions Recorded acetaminophen 325 mg tablet 650 mg (2 x 325 mg) PO Q6H PRN 01/29/23 Pain #100 tabs hydrocodone 5 mg-acetaminophen 325 1 tab PO Q4-6H PRN pain #10 tabs 11/23/23 mg tablet ondansetron HCl 4 mg tablet 4 mg PO Q6H PRN nausea and 11/24/23 vomiting #10 tabs oxycodone 5 mg tablet 5 mg PO Q6H PRN pain #10 tabs 11/24/23 prednisone 20 mg tablet 20 mg PO BID #10 tabs 11/24/23 Allergies Allergy/AdvReac Type Severity Reaction Status Date / Time hydroxyzine AdvReac Severe Seizure Verified 06/09/23 17:31 Review of Systems Status of ROS: Reports: 10 or more systems reviewed and unremarkable except as noted in History and below Narrative: Constitutional: No fevers, no weight gain or loss. Eyes: No discharge. No vision changes. HENT: No congestion, no sore throat, no ear pain. Cardiovascular: No chest pain, no palpitations. Respiratory: No shortness of breath, no wheezes, no cough. Gastrointestinal: No abdominal pain, no vomiting, no diarrhea. Genitourinary: No dysuria, no hematuria. Musculoskeletal: Normal range of motion. She reports some pain in the right bu ttock. Skin: No rashes, no pruritis. Neurological: No dizziness, weakness, sensory change, speech change. Endo/Heme/Allergies: No bruising or bleeding. No polydipsia. Pysch: no suicidality, no anxiety, no insomnia. All other systems reviewed and are negative. [facility] Medical History History of depression ?Z86.59 - Personal history of other mental and behavioral disorders (ICD-10) Sinus bradycardia ?R00.1 - Bradycardia, unspecified (ICD-10) Pulmonary fibrosis ?J84.10 - Pulmonary fibrosis, unspecified (ICD-10) Meningioma ?D32.9 - Benign neoplasm of meninges, unspecified (ICD-10) Rheumatic fever with cardiac involvement ?I01.9 - Acute rheumatic heart disease, unspecified (ICD-10) Bibasilar crackles ?R09.89 - Other specified symptoms and signs involving the circulatory and respiratory systems (ICD-10) Murmur, cardiac ?R01.1 - Cardiac murmur, unspecified (ICD-10) Seizures ?R56.9 - Unspecified convulsions (ICD-10) Surgical History History of gastric bypass (1986) ?Z98.84 - Bariatric surgery status (ICD-10) History of section (1986) ?Z98.891 - History of uterine scar from previous surgery (ICD-10) Hx of tonsillectomy ?Z90.89 - Acquired absence of other organs (ICD-10) Family History Sister Breast cancer Scleroderma Seizure Father Major depression Grandfather Stroke Grandmother Stroke Social History Narrative: Lifelong nontobacco user. Denies alcohol use or recreational drugs. Does not have regular exercise regimen. 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 Smoking Status: Never smoker Do you use any of these nicotine containing products: None How often do you have a drink containing alcohol: never How often do you have six or more drinks on one occasion: Never AUDIT-C Alcohol total score: 0 Non-prescribed substance use: denies use Caffeine: Yes (soda) service: No Exam Narrative: Exam Narrative: Constitutional: Well-developed, well-nourished, no acute distress. HEENT: Normocephalic, atraumatic. Neck: Normal range of motion. Nontender. Supple. Heart: Regular. No murmurs. Normal rate. Intact distal pulses. Lungs: Clear to auscultation. No chest discomfort. No wheezes, rhonchi, or rales. Abdomen: Normal bowel sounds. Nontender. No rebound tenderness. Genitalia: Deferred. Back: No midline tenderness. Normal range of motion. Extremities: Normal range of motion. No sign of injury. I am able to logroll her right leg without pain. She is able to raise her right leg from the bed without difficulty. Skin: Intact. No rash. Warm. No erythema or pallor. Neurologic: No altered sensation. No weakness. Alert and oriented. Psychiatric: No suicidality. No anxiety or depression. No insomnia. Nursing notes and vitals signs are reviewed. Const: Vital Signs, click to edit/add: Vital Signs - 24 hr 11/26/23 11:44 11/26/23 13:49 Temperature 99.2 F Pulse Rate [Pulse Oximeter] 66 71 Respiratory Rate 18 20 Blood Pressure [Ri ght Upper Arm] 185/87 H 170/90 H Pulse Oximetry 95 96 Oxygen Delivery Me thod Room Air Room Air Course Vital Signs Vital signs: Initial Vital Signs Temperature 99.2 F 11/26/23 11:44 Temperature Source Temporal Artery Scan 11/26/23 11:44 Pulse Rate 66 11/26/23 11:44 Respiratory Rate 18 11/26/23 11:44 Blood Pressure 185/87 H 11/26/23 11:44 Blood Pressure Mean 119 H 11/26/23 11:44 Pulse Oximetry 95 11/26/23 11:44 Oxygen Delivery Method Room Air 11/26/23 11:44 Vital Signs Temperature 99.2 F 11/26/23 11:44 Pulse Rate 66 11/26/23 11:44 Respiratory Rate 18 11/26/23 11:44 Blood Pressure 185/87 H 11/26/23 11:44 Pulse Oximetry 95 11/26/23 11:44 Oxygen Delivery Method Room Air 11/26/23 11:44 Temperature 99.2 F 11/26/23 11:44 Pulse Rate 71 11/26/23 13:49 Respiratory Rate 20 11/26/23 13:49 Blood Pressure 170/90 H 11/26/23 13:49 Pulse Oximetry 96 11/26/23 13:49 Oxygen Delivery Method Room Air 11/26/23 13:49 Medications Administered Medications: Discontinued Medications Generic Name Dose Route Start Last Admin Trade Name Freq PRN Reason Stop Dose Admin Acetaminophen 500 mg 11/26/23 13:37 11/26/23 13:47 Acetaminophen 500 Mg Tablet PO 11/26/23 13:38 Not Given ONCE ONE Ibuprofen 600 mg 11/26/23 13:37 11/26/23 13:47 Ibuprofen 200 Mg Tablet PO 11/26/23 13:38 Not Given ONCE ONE MDM - Fall MDM Narrative Medical decision making narrative: This patient comes in for evaluation of a fall that occurred prior to arrival. She is reporting some discomfort in the right buttock area. She was able to get up and ambulate after the fall. At the time of my initial exam also she did not have any pain when log-rolling her leg and she was able to lift this leg up off the bed without any difficulty. X-ray imaging by my review with radiology report pending shows no acute findings. The patient is okay to be discharged home to resume current plans. Discharge Plan Discharge Clinical Impression: Contusion of right buttock Patient Disposition: Home w/ Parent or Adult Condition: Stable Additional Instructions: Continue current plans. Use medications as prescribed and needed. Follow up with MD return if worsening. Prescriptions: No Action acetaminophen 325 mg Tablet 650 mg PO Q6H PRN (Reason: Pain) Qty: 100 0RF oxycodone 5 mg tablet 5 mg PO Q6H PRN (Reason: pain) Qty: 10 0RF prednisone 20 mg tablet 20 mg PO BID Qty: 10 0RF ondansetron HCl 4 mg tablet 4 mg PO Q6H PRN (Reason: nausea and vomiting) Qty: 10 0RF hydrocodone-acetaminophen 5-325 mg tablet 1 tab PO Q4-6H PRN (Reason: pain) Qty: 10 0RF Follow Up/Referrals: Sada Newell DO [Primary Care Provider] - Stand Alone Forms: [employer] Info Instructions
[2023-11-26 13:49] VITALS: BP 170/90; PULSE 71; RESP 20; O2SAT 96
== END 2023-11-26 14:29 | disposition home or self-care (01) ==
PROVIDERS: Emergency Provider Emergency Medicine Emergency Medical Services; PCP Family Medicine
DX: S30.0XXA Contusion of lower back and pelvis, initial encounter (principal); W18.30XA Fall on same level, unspecified, initial encounter
CPT/HCPCS: 73502; 99283; 99284

== ENCOUNTER 2024-03-26 21:07 | Emergency (ER) | payer MEDICARE, SELFPAY ==
[2024-03-26] VITALS (7 sets, daily range): BP systolic 173–197; BP diastolic 82–98; PULSE 70–74; RESP 14–18; TEMP 36.4; O2SAT 94–96
--- NOTE | 2024-03-26 21:29 | ED.GENADULT ---
HPI - General Adult General Chief complaint: Shoulder Injury/Pain Stated complaint: L shoulder, arm pain Time Seen by Provider: 03/26/24 21:11 History of Present Illness HPI narrative: No chest pain, no shortness of breath. Pt complaint of shoulder pain to neck. No reported trauma . Pain rated 8 /10. Pain increases when laying flat. No reports of being dizzy. Pain started 1830 78-year-old woman presenting to the emergency department with concern of neck and shoulder area pain. Initially started aching in her left mid arm and then seemed to move to a shoulder then across her left chest and it into her throat. Can hurt a little bit when she swallows. No ill exposures. No particular injury. She is not short of breath. Not actually with difficulty swallowing. No complaint of lightheadedness. No weakness. Discomfort began about 3 hours prior to this evaluation. Related Data Home Medications ?Medication ?Instructions ?Recorded ?Confirmed No Known Home Medications 03/27/24 03/27/24 Allergies Allergy/AdvReac Type Severity Reaction Status Date / Time hydroxyzine AdvReac Severe Seizure Verified 03/27/24 13:30 Review of Systems Status of ROS: Reports: 6 or more systems reviewed and unremarkable except as noted in History and below [facility] Medical History History of depression ?Z86.59 - Personal history of other mental and behavioral disorders (ICD-10) Sinus bradycardia ?R00.1 - Bradycardia, unspecified (ICD-10) Pulmonary fibrosis ?J84.10 - Pulmonary fibrosis, unspecified (ICD-10) Meningioma ?D32.9 - Benign neoplasm of meninges, unspecified (ICD-10) Rheumatic fever with cardiac involvement ?I01.9 - Acute rheumatic heart disease, unspecified (ICD-10) Bibasilar crackles ?R09.89 - Other specified symptoms and signs involving the circulatory and respiratory systems (ICD-10) Murmur, cardiac ?R01.1 - Cardiac murmur, unspecified (ICD-10) Seizures ?R56.9 - Unspecified convulsions (ICD-10) Surgical History History of gastric bypass (1986) ?Z98.84 - Bariatric surgery status (ICD-10) History of section (1986) ?Z98.891 - History of uterine scar from previous surgery (ICD-10) Hx of tonsillectomy ?Z90.89 - Acquired absence of other organs (ICD-10) Family History Sister Breast cancer Scleroderma Seizure Father Major depression Grandfather Stroke Grandmother Stroke Social History Narrative: Lifelong nontobacco user. Denies alcohol use or recreational drugs. Does not have regular exercise regimen. 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 Smoking Status: Never smoker Do you use any of these nicotine containing products: None Second hand tobacco smoke exposure: No How often do you have a drink containing alcohol: never How often do you have six or more drinks on one occasion: Never AUDIT-C Alcohol total score: 0 Non-prescribed substance use: denies use Caffeine: Yes (soda) service: No Exam Narrative: Exam Narrative: Of good energy. Direct in her conversation. Breathing easily. Lungs are clear. There is no supraclavicular crepitus. I do not appreciate any palpable masses or swelling. Oropharynx is unremarkable without swelling or erythema. Strong and equal carotid upstroke. Heart in regular rate and rhythm. Systolic crescendo murmur. Mild tenderness in the left trapezius. Moving all extremities out difficulty. Normal sensation and well-perfused. Const: Vital Signs, click to edit/add: Vital Signs - 24 hr 03/26/24 21:17 03/26/24 21:50 03/26/24 22:05 Temperature 97.5 F L Pulse Rate 74 Pulse Rate [Left P ulse Oximeter] 70 Respiratory Rate 18 14 Blood Pressure 197/93 H Blood Pressure [Ri ght Upper Arm] 193/82 H Pulse Oximetry 95 95 94 Oxygen Delivery Me thod Room Air 03/26/24 22:32 03/26/24 23:02 03/26/24 23:32 Temperature Pulse Rate 73 74 74 Pulse Rate [Left P ulse Oximeter] Respiratory Rate 16 14 16 Blood Pressure 186/98 H 173/95 H 175/93 H Blood Pressure [Ri ght Upper Arm] Pulse Oximetry 95 95 96 Oxygen Delivery Me thod 03/26/24 23:46 Temperature 97.5 F L Pulse Rate Pulse Rate [Left P ulse Oximeter] 70 Respiratory Rate 16 Blood Pressure Blood Pressure [Ri ght Upper Arm] 193/82 H Pulse Oximetry Oxygen Delivery Tx thod Documenting provider has reviewed patient's vital signs: yes Course Vital Signs Vital signs: Initial Vital Signs Temperature 97.5 F L 03/26/24 21:17 Temperature Source Temporal Artery Scan 03/26/24 21:17 Pulse Rate 70 03/26/24 21:17 Pulse Rhythm Regular 03/26/24 21:17 Respiratory Rate 18 03/26/24 21:17 Blood Pressure 193/82 H 03/26/24 21:17 Blood Pressure Mean 119 H 03/26/24 21:17 Blood Pressure Position Sitting 03/26/24 21:17 Pulse Oximetry 95 03/26/24 21:17 Oxygen Delivery Method Room Air 03/26/24 21:17 Vital Signs Temperature 97.5 F L 03/26/24 21:17 Pulse Rate 70 03/26/24 21:17 Respiratory Rate 18 03/26/24 21:17 Blood Pressure 193/82 H 03/26/24 21:17 Pulse Oximetry 95 03/26/24 21:17 Oxygen Delivery Method Room Air 03/26/24 21:17 Temperature 97.5 F L 03/26/24 23:46 Pulse Rate 70 03/26/24 23:46 Respiratory Rate 16 03/26/24 23:46 Blood Pressure 193/82 H 03/26/24 23:46 Pulse Oximetry 96 03/26/24 23:32 Oxygen Delivery Method Room Air 03/26/24 21:17 Medications Administered Medications: Discontinued Medications Generic Name Dose Route Start Last Admin Trade Name Freq PRN Reason Stop Dose Admin Morphine Sulfate 2 mg 03/26/24 21:38 03/26/24 21:49 Morphine 2 Mg/Ml Inj IVP 03/26/24 21:39 2 mg ONCE ONE Administration Medical Decision Making MDM Narrative Medical decision making narrative: Not so clearly reproducible to make me think that this is musculoskeletal. Is this murmur entry level account representative of a dissection? Holding on aspirin for now with this in mind. EKG looks to be nonspecific in sinus at 71 and similar to prior but I am concerned about evolution. Ischemic cardiovascular disease? Giving morphine for pain Pneumothorax or pneumomediastinum? Repeat EKG unchanged at a rate of 67. No indication of pericarditis. Chest x-ray reviewed by me without pneumothorax or apparent pneumomediastinum. No infiltrate. Normal cardiac silhouette INDICATION: Upper left chest area pain TECHNIQUE: Chest radiograph 1 view COMPARISON: None FINDINGS: The sensitivity and specificity of the exam are moderately limited by the patient`s body habitus. Mediastinum: The mediastinum is normal in appearance. The heart silhouette is normal in size and morphology. Lung: The right apex is obscured by the patient`s chin. Small lung volumes with mild diffuse reticulonodular interstitial opacities are present. No sign of pleural effusion seen. No pneumothorax is identified. Bone and Soft tissue: Unremarkable for age. IMPRESSION: 1. Small lung volumes with mild diffuse reticulonodular interstitial opacities are present. Findings may be due to interstitial lung disease and/or interstitial edema. Discomfort has settled. Delayed in getting results. Labs are unremarkable, reassuring other than a D-dimer which is elevated at 1.43. No further events. Ms. Lyn does not want to stay for further evaluation. Do not have an explanation clearly for this discomfort. Might benefit from CTA of the chest in particular which she ultimately is declining, insisting to go home. See patient discharge plan for further discussion. Medical Records Medical records reviewed: Yes I reviewed the patient's medical records Lab Data Lab results reviewed: Yes I reviewed the patient's lab results Labs: Lab Results 03/26/24 03/26/24 03/26/24 Range/Units 21:38 21:50 21:50 WBC 7.57 (4.50-11.00) K/uL RBC 3.89 L (4.00-5.20) m/uL Hgb 11.8 L (12.0-16.0) gm/dL Hct 37.3 (33.0-51.0) % MCV 96 (80-100) fL MCH 30 (26-34) pg MCHC 32 (32-36) gm/dL RDW Coeff of Miquel 13.4 (11.5-15.5) % Plt Count 253 (140-440) K/uL Neut % (Auto) 76.4 H (42.0-72.0) % Lymph % (Auto) 14.4 L (20-44) % Clayton % (Auto) 6.7 (0.0-11.0) % Eos % (Auto) 2.0 (0.0-7.0) % Baso % (Auto) 0.4 (0.0-3.0) % Neut # (Auto) 5.80 (1.7-7.0) K/uL Lymph # (Auto) 1.10 (0.90-2.90) K/uL Clayton # (Auto) 0.50 (0.00-0.90) K/UL Eos # (Auto) 0.15 (0.00-0.50) K/uL Baso # (Auto) 0.03 (0.00-0.30) K/uL Abs Immat Gran (auto) 0.01 (0.00-0.30) K/uL Imm/Tot Granulo (auto) 0.1 % D-Dimer Quant (PE/DVT) 1.43 H (0.00-0.50) ug/ml Sodium 140 (135-149) mmol/L Potassium 3.6 (3.6-5.1) mmol/L Chloride 109 (96-114) mmol/L Carbon Dioxide 24 (20-32) mmol/L Anion Gap 7 (7-15) mEq/L BUN 15 (7-30) mg/dL Creatinine 0.7 (0.5-1.5) mg/dL Estimated GFR 88 ml/min Glucose 104 (60-115) mg/dL Calcium 8.4 (8.4-10.6) mg/dL Magnesium 2.1 Cancelled (1.5-2.6) mg/dL Total Bilirubin 0.6 (0.1-1.5) mg/dL Direct Bilirubin (0.0-0.5) mg/dL AST (12-35) U/L ALT (4-35) U/L Alkaline Phosphatase (40-150) U/L Troponin I (0.01-0.04) ng/mL C-Reactive Protein (0.5-1.0) mg/dL NT-Pro-B Natriuret Pep pg/mL Total Protein (6.0-8.3) g/dL Albumin (3.3-5.0) g/dL POC Troponin I (0.01-0.04) ng/ml 03/26/24 03/26/24 03/26/24 Range/Units 21:50 21:50 21:50 WBC (4.50-11.00) K/uL RBC (4.00-5.20) m/uL Hgb (12.0-16.0) gm/dL Hct (33.0-51.0) % MCV (80-100) fL MCH (26-34) pg MCHC (32-36) gm/dL RDW Coeff of Miquel (11.5-15.5) % Plt Count (140-440) K/uL Neut % (Auto) (42.0-72.0) % Lymph % (Auto) (20-44) % Clayton % (Auto) (0.0-11.0) % Eos % (Auto) (0.0-7.0) % Baso % (Auto) (0.0-3.0) % Neut # (Auto) (1.7-7.0) K/uL Lymph # (Auto) (0.90-2.90) K/uL Clayton # (Auto) (0.00-0.90) K/UL Eos # (Auto) (0.00-0.50) K/uL Baso # (Auto) (0.00-0.30) K/uL Abs Immat Gran (auto) (0.00-0.30) K/uL Imm/Tot Granulo (auto) % D-Dimer Quant (PE/DVT) (0.00-0.50) ug/ml Sodium (135-149) mmol/L Potassium (3.6-5.1) mmol/L Chloride (96-114) mmol/L Carbon Dioxide (20-32) mmol/L Anion Gap (7-15) mEq/L BUN (7-30) mg/dL Creatinine (0.5-1.5) mg/dL Estimated GFR ml/min Glucose (60-115) mg/dL Calcium (8.4-10.6) mg/dL Magnesium (1.5-2.6) mg/dL Total Bilirubin Cancelled (0.1-1.5) mg/dL Direct Bilirubin 0.3 Cancelled (0.0-0.5) mg/dL AST 22 Cancelled (12-35) U/L ALT 9 (4-35) U/L Alkaline Phosphatase (40-150) U/L Troponin I (0.01-0.04) ng/mL C-Reactive Protein (0.5-1.0) mg/dL NT-Pro-B Natriuret Pep pg/mL Total Protein (6.0-8.3) g/dL Albumin (3.3-5.0) g/dL POC Troponin I (0.01-0.04) ng/ml 03/26/24 03/26/24 03/26/24 Range/Units 21:50 21:50 21:50 WBC (4.50-11.00) K/uL RBC (4.00-5.20) m/uL Hgb (12.0-16.0) gm/dL Hct (33.0-51.0) % MCV (80-100) fL MCH (26-34) pg MCHC (32-36) gm/dL RDW Coeff of Miquel (11.5-15.5) % Plt Count (140-440) K/uL Neut % (Auto) (42.0-72.0) % Lymph % (Auto) (20-44) % Clayton % (Auto) (0.0-11.0) % Eos % (Auto) (0.0-7.0) % Baso % (Auto) (0.0-3.0) % Neut # (Auto) (1.7-7.0) K/uL Lymph # (Auto) (0.90-2.90) K/uL Clayton # (Auto) (0.00-0.90) K/UL Eos # (Auto) (0.00-0.50) K/uL Baso # (Auto) (0.00-0.30) K/uL Abs Immat Gran (auto) (0.00-0.30) K/uL Imm/Tot Granulo (auto) % D-Dimer Quant (PE/DVT) (0.00-0.50) ug/ml Sodium (135-149) mmol/L Potassium (3.6-5.1) mmol/L Chloride (96-114) mmol/L Carbon Dioxide (20-32) mmol/L Anion Gap (7-15) mEq/L BUN (7-30) mg/dL Creatinine (0.5-1.5) mg/dL Estimated GFR ml/min Glucose (60-115) mg/dL Calcium (8.4-10.6) mg/dL Magnesium (1.5-2.6) mg/dL Total Bilirubin (0.1-1.5) mg/dL Direct Bilirubin (0.0-0.5) mg/dL AST (12-35) U/L ALT Cancelled (4-35) U/L Alkaline Phosphatase 108 Cancelled (40-150) U/L Troponin I < 0.01 L Cancelled (0.01-0.04) ng/mL C-Reactive Protein < 0.5 L (0.5-1.0) mg/dL NT-Pro-B Natriuret Pep 549 pg/mL Total Protein (6.0-8.3) g/dL Albumin (3.3-5.0) g/dL POC Troponin I (0.01-0.04) ng/ml 03/26/24 03/26/24 03/26/24 Range/Units 21:50 21:50 21:50 WBC (4.50-11.00) K/uL RBC (4.00-5.20) m/uL Hgb (12.0-16.0) gm/dL Hct (33.0-51.0) % MCV (80-100) fL MCH (26-34) pg MCHC (32-36) gm/dL RDW Coeff of Miquel (11.5-15.5) % Plt Count (140-440) K/uL Neut % (Auto) (42.0-72.0) % Lymph % (Auto) (20-44) % Clayton % (Auto) (0.0-11.0) % Eos % (Auto) (0.0-7.0) % Baso % (Auto) (0.0-3.0) % Neut # (Auto) (1.7-7.0) K/uL Lymph # (Auto) (0.90-2.90) K/uL Clayton # (Auto) (0.00-0.90) K/UL Eos # (Auto) (0.00-0.50) K/uL Baso # (Auto) (0.00-0.30) K/uL Abs Immat Gran (auto) (0.00-0.30) K/uL Imm/Tot Granulo (auto) % D-Dimer Quant (PE/DVT) (0.00-0.50) ug/ml Sodium (135-149) mmol/L Potassium (3.6-5.1) mmol/L Chloride (96-114) mmol/L Carbon Dioxide (20-32) mmol/L Anion Gap (7-15) mEq/L BUN (7-30) mg/dL Creatinine (0.5-1.5) mg/dL Estimated GFR ml/min Glucose (60-115) mg/dL Calcium (8.4-10.6) mg/dL Magnesium (1.5-2.6) mg/dL Total Bilirubin (0.1-1.5) mg/dL Direct Bilirubin (0.0-0.5) mg/dL AST (12-35) U/L ALT (4-35) U/L Alkaline Phosphatase (40-150) U/L Troponin I (0.01-0.04) ng/mL C-Reactive Protein (0.5-1.0) mg/dL NT-Pro-B Natriuret Pep Cancelled pg/mL Total Protein 7.5 Cancelled (6.0-8.3) g/dL Albumin 4.1 Cancelled (3.3-5.0) g/dL POC Troponin I 0.01 (0.01-0.04) ng/ml 03/26/24 Range/Units 23:21 WBC (4.50-11.00) K/uL RBC (4.00-5.20) m/uL Hgb (12.0-16.0) gm/dL Hct (33.0-51.0) % MCV (80-100) fL MCH (26-34) pg MCHC (32-36) gm/dL RDW Coeff of Miquel (11.5-15.5) % Plt Count (140-440) K/uL Neut % (Auto) (42.0-72.0) % Lymph % (Auto) (20-44) % Clayton % (Auto) (0.0-11.0) % Eos % (Auto) (0.0-7.0) % Baso % (Auto) (0.0-3.0) % Neut # (Auto) (1.7-7.0) K/uL Lymph # (Auto) (0.90-2.90) K/uL Clayton # (Auto) (0.00-0.90) K/UL Eos # (Auto) (0.00-0.50) K/uL Baso # (Auto) (0.00-0.30) K/uL Abs Immat Gran (auto) (0.00-0.30) K/uL Imm/Tot Granulo (auto) % D-Dimer Quant (PE/DVT) (0.00-0.50) ug/ml Sodium (135-149) mmol/L Potassium (3.6-5.1) mmol/L Chloride (96-114) mmol/L Carbon Dioxide (20-32) mmol/L Anion Gap (7-15) mEq/L BUN (7-30) mg/dL Creatinine (0.5-1.5) mg/dL Estimated GFR ml/min Glucose (60-115) mg/dL Calcium (8.4-10.6) mg/dL Magnesium (1.5-2.6) mg/dL Total Bilirubin (0.1-1.5) mg/dL Direct Bilirubin (0.0-0.5) mg/dL AST (12-35) U/L ALT (4-35) U/L Alkaline Phosphatase (40-150) U/L Troponin I (0.01-0.04) ng/mL C-Reactive Protein (0.5-1.0) mg/dL NT-Pro-B Natriuret Pep pg/mL Total Protein (6.0-8.3) g/dL Albumin (3.3-5.0) g/dL POC Troponin I 0.02 (0.01-0.04) ng/ml ECG Data Attestation: I personally reviewed and interpreted this ECG as follows: Discharge Plan Discharge Clinical Impression: Atypical chest pain Patient Disposition: Home w/ Parent or Adult Condition: Improved Additional Instructions: I am happy you are feeling better. I suppose this could have been some muscle spasm. You do not look to have had a heart attack here recently. As I said there are some things I am still concerned about but I understand you would like to leave. Return if you seem to be worsening. Prescriptions: No Action No Known Home Medications Follow Up/Referrals: Sada Newell DO [Primary Care Provider] - Stand Alone Forms: Team My [employer] Info Instructions
--- NOTE | 2024-03-26 21:38 | CRLHL7_ITS ---
For Patients: As a result of the Century Cures Act, medical imaging exams and procedure reports are released immediately into your electronic medical record. You may view this report before your referring provider. If you have questions, please contact your health care provider. INDICATION: Upper left chest area pain TECHNIQUE: Chest radiograph 1 view COMPARISON: None FINDINGS: The sensitivity and specificity of the exam are moderately limited by the patient`s body habitus. Mediastinum: The mediastinum is normal in appearance. The heart silhouette is normal in size and morphology. Lung: The right apex is obscured by the patient`s chin. Small lung volumes with mild diffuse reticulonodular interstitial opacities are present. No sign of pleural effusion seen. No pneumothorax is identified. Bone and Soft tissue: Unremarkable for age. IMPRESSION: 1. Small lung volumes with mild diffuse reticulonodular interstitial opacities are present. Findings may be due to interstitial lung disease and/or interstitial edema. Dictated by Danny Mckoy MD @ 03/26/2024 10:20:54 PM Dictated by: Danny Mckoy MD @ 03/26/2024 22:20:57 (Electronically Signed)
[2024-03-26] MEDS: MORPHINE 2 MG/ML inj IVP (21:49)
[2024-03-26 22:06] LABS: Troponin, Point-of-Care* 0.01 ng/ml (0.01-0.04)
[2024-03-26 22:11] LABS: Albumin* 4.1 g/dL (3.3-5.0); Chloride* 109 mmol/L (96-114)
[2024-03-26 22:12] LABS: Potassium* 3.6 mmol/L (3.6-5.1); Sodium* 140 mmol/L (135-149)
[2024-03-26 22:14] LABS: Creatinine* 0.7 mg/dL (0.5-1.5); Estimated Glomerular Filt Rate 88 ml/min
[2024-03-26 22:15] LABS: Alanine Aminotransferase* 9 U/L (4-35); Alkaline Phosphatase* 108 U/L (40-150); Anion Gap 7 mEq/L (7-15); Aspartate Amino Transferase* 22 U/L (12-35); Bilirubin Direct* 0.3 mg/dL (0.0-0.5); Bilirubin Total* 0.6 mg/dL (0.1-1.5); Blood Urea Nitrogen* 15 mg/dL (7-30); Calcium* 8.4 mg/dL (8.4-10.6); Carbon Dioxide* 24 mmol/L (20-32); Glucose* 104 mg/dL (60-115); Magnesium* 2.1 mg/dL (1.5-2.6); Total Protein* 7.5 g/dL (6.0-8.3)
[2024-03-26 22:18] LABS: C Reactive Protein* < 0.5 mg/dL (0.5-1.0)
[2024-03-26 22:27] LABS: NT Pro B Type NatriureticPept* 549 pg/mL; Troponin I* < 0.01 ng/mL (0.01-0.04)
[2024-03-26 22:33] LABS: Basophils Absolute Auto 0.03 K/uL (0.00-0.30); Basophils Percent Auto 0.4 % (0.0-3.0); Eosinophils Absolute Auto 0.15 K/uL (0.00-0.50); Hematocrit 37.3 % (33.0-51.0); Hemoglobin* 11.8 gm/dL (12.0-16.0); Immature Granulocytes Abs Auto 0.01 K/uL (0.00-0.30); Immature Granulocytes Pct Auto 0.1 %; Lymphocytes Percent Auto 14.4 % (20-44); Mean Corpuscular HGB Conc 32 gm/dL (32-36); Mean Corpuscular Hemoglobin 30 pg (26-34); Mean Corpuscular Volume 96 fL (80-100); Monocytes Percent Auto 6.7 % (0.0-11.0); Neutrophils Percent Auto 76.4 % (42.0-72.0); Platelet Count* 253 K/uL (140-440); RDW Coefficient of Variation % 13.4 % (11.5-15.5); Red Blood Count 3.89 m/uL (4.00-5.20); White Blood Count* 7.57 K/uL (4.50-11.00)
[2024-03-26 22:38] LABS: Slide Review Reflex No
[2024-03-26 22:41] LABS: D Dimer Quantitative* 1.43 ug/ml (0.00-0.50)
[2024-03-26 23:35] LABS: Troponin, Point-of-Care* 0.02 ng/ml (0.01-0.04)
== END 2024-03-26 23:47 | disposition home or self-care (01) ==
PROVIDERS: Emergency Provider Family Medicine; PCP Family Medicine
DX: R07.9 Chest pain, unspecified (principal)
CPT/HCPCS: 36415; 71045; 80048; 80076; 83735; 83880; 84484; 85025; 85379; 86140; 93005; 94761; 96374; 99284; J2270

== ENCOUNTER 2024-03-27 12:48 | Emergency (ER) | payer MEDICARE, SELFPAY ==
[2024-03-27] VITALS (16 sets, daily range): BP systolic 127–172; BP diastolic 71–82; PULSE 67–74; RESP 18–20; TEMP 36.7; O2SAT 92–97; BMI 21.0
--- NOTE | 2024-03-27 13:11 | CRLHL7_ITS ---
For Patients: As a result of the Century Cures Act, medical imaging exams and procedure reports are released immediately into your electronic medical record. You may view this report before your referring provider. If you have questions, please contact your health care provider. Indication: Chest pain Technique: CTA chest, pulmonary embolism protocol, utilizing 95 mL Isovue 370 Comparison: None Findings: No appreciable thyroid nodules. There are few prominent mediastinal lymph nodes without pathologic enlargement, likely reactive. The heart is within normal limits in size. No pericardial effusion. Coronary artery calcifications. Aortic valve calcification. Mitral annular calcifications. The thoracic aorta and pulmonary artery are normal in caliber. There is no pulmonary embolism. Mosaic attenuation throughout the lung parenchyma, a nonspecific finding which can be seen with air trapping/edema. Interlobular septal thickening, suggestive of interstitial edema. Subpleural reticulations, which may represent nonspecific interstitial lung disease. The visualized upper abdomen is without acute process. Small hiatal hernia. 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 There are some degenerative changes seen throughout the spine with an age indeterminate compression deformity of the T12 vertebral body with anterior wedging of the T11 vertebral body. Impression: 1. No pulmonary embolism. 2. Mosaic attenuation of the lung parenchyma which can be seen with air trapping/edema and interlobular septal thickening, suggestive of interstitial edema. 3. Subpleural reticulations suggestive of nonspecific interstitial lung disease. Please note that all CT scans at this facility use dose modulation, iterative reconstruction, and/or weight-based dosing when appropriate to reduce radiation dose to as low as reasonably achievable. Dictated by Holland Plummer MD @ 03/27/2024 3:12:11 PM (Electronically Signed)
--- OUTSIDE RECORDS SUMMARY | 2024-03-27 13:16 | XMS_ITS | Referral Summary ---
Author Organization [facility] Address [address] [place] [id number] Care Team Providers Care Service Porter Name Role Phone No Ref-Primary, Physician Primary Care Provider Allergies No known active allergies Social History Tobacco Use Types Packs/Day Years Used Date Smoking Tobacco: Never Assessed Adolescent Education Answer Date Record ed Getting School Help Needed Not on file 03/27 Sex and Gender Information Value Date Recorded Sex Assigned at Not on file Gender Identity Not on file Sexual Orientation Not on file Last Filed Vital Signs Vital Sign Reading Time Taken Comments Blood Pressure 128/65 02/07/2020 7:30 PM CDT Pulse 72 02/07/2020 7:30 PM CDT Temperature 36.6 ??C (97.9 ??F) 02/07/2020 6:39 PM CD T Respiratory Rate 15 02/07/2020 6:43 PM CDT Oxygen Saturation 96% 02/07/2020 7:30 PM CDT Inhaled Oxygen Concentration - - Weight - - Height - - Body Mass Index - - Plan of Treatment Not on file Care Teams Service Porter Relationship Specialty Start Date End Date No Ref-Primary, Physician PCP - General 02/07/20
--- OUTSIDE RECORDS SUMMARY | 2024-03-27 13:16 | XMS_ITS | Clinical Summary ---
Author Organization [facility] Address [address] [place] [id number] Care Team Providers Care Automobile Technician Name Role Phone No Ref-Primary, Physician Primary [...] Mass Index - - Plan of Treatment Health Maintenance Due Date Last Done Comments ADVANCE CARE PLANNING 1945 ANNUAL REVIEW OF HM ORDERS 1945 DEXA 1945 GLUCOSE 1945 HEPATITIS C SCREENING 1963 LIPID 1985 ZOSTER IMMUNIZATION (1 of 2) 1995 DTAP/TDAP/TD IMMUNIZATION (1 - Tdap) 03/14/2004 03/13/2004 RSV VACCINE ( & 60+ ) (1 - 1-dose 60+ series) 2005 FALL RISK ASSESSMENT 2010 MEDICARE ANNUAL WELLNESS VISIT 2010 Pneumococcal Vaccine: 65+ Ye ars (1 of 1 - PCV) 2010 COVID-19 Vaccine (2022-2 4 season) 2023 PHQ-2 (once per calendar year) 2023 INFLUENZA VACCINE (Season Ended) 2024 HPV IMMUNIZATION Aged Out No longer e ligible based on patient's age to complete this topic IPV IMMUNIZATION Aged Out No longer e ligible based on patient's age to complete this topic MENINGITIS IMMUNIZATION Aged Out No l onger eligible based on patient's age to complete this topic RSV MONOCLONAL ANTIBODY Aged Out No l onger eligible based on patient's age to complete this topic Care Teams Automobile Technician Relationship Specialty Start Date End Date No Ref-Primary, Physician PCP - General 02/07/20
--- NOTE | 2024-03-27 13:18 | ED.GENADULT ---
HPI - General Adult General Chief complaint: Extremity Pain/Injury, Upper Stated complaint: pain left shoulder Time Seen by Provider: 03/27/24 12:53 Source: patient Mode of arrival: ambulatory Limitations: no limitations History of Present Illness HPI narrative: 70-year-old female coming in today complaining of shoulder and chest pain that started yesterday. She denies any rigorous physical activity outside her normal. She denies feeling short of breath. She denies any nausea or vomiting. No fevers or chills. No recent illness. She denies any recent traveling, plane rides or long car rides. She denies any recent surgery. Patient states that the pain is constant but she has waves when the pain becomes sharp and worse. She feels like it starts in the left shoulder and then radiates across the entire chest into her neck and jaw, it also radiates down the left arm. Movement of the arm and shoulder does not exacerbate her pain. Movement of the neck does not exacerbate her pain. When the pain comes she feels like it almost chokes her. Patient was seen in the ER yesterday where the majority of her workup was normal. She did have an elevated D-dimer in per the patient, it was recommended that she have a chest CT done which she declined secondary to wanting to go home. She returns today to have that test done as her pain continues. She denies feeling dizzy or lightheaded. She denies vertigo, she denies a headache. She denies confusion or any focal neurologic deficits. Related Data Home Medications ?Medication ?Instructions ?Recorded ?Confirmed No Known Home Medications 03/27/24 03/27/24 Allergies Allergy/AdvReac Type Severity Reaction Status Date / Time hydroxyzine AdvReac Severe Seizure Verified 03/27/24 13:30 Review of Systems Status of ROS: Reports: 10 or more systems reviewed and unremarkable except as noted in History and below [facility] Medical History History of depression ?Z86.59 - Personal history of other mental and behavioral disorders (ICD-10) Sinus bradycardia ?R00.1 - Bradycardia, unspecified (ICD-10) Pulmonary fibrosis ?J84.10 - Pulmonary fibrosis, unspecified (ICD-10) Meningioma ?D32.9 - Benign neoplasm of meninges, unspecified (ICD-10) Rheumatic fever with cardiac involvement ?I01.9 - Acute rheumatic heart disease, unspecified (ICD-10) Bibasilar crackles ?R09.89 - Other specified symptoms and signs involving the circulatory and respiratory systems (ICD-10) Murmur, cardiac ?R01.1 - Cardiac murmur, unspecified (ICD-10) Seizures ?R56.9 - Unspecified convulsions (ICD-10) Surgical History History of gastric bypass (1986) ?Z98.84 - Bariatric surgery status (ICD-10) History of section (1986) ?Z98.891 - History of uterine scar from previous surgery (ICD-10) Hx of tonsillectomy ?Z90.89 - Acquired absence of other organs (ICD-10) Family History Sister Breast cancer Scleroderma Seizure Father Major depression Grandfather Stroke Grandmother Stroke Social History Narrative: Lifelong nontobacco user. Denies alcohol use or recreational drugs. Does not have regular exercise regimen. 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 Smoking Status: Never smoker Do you use any of these nicotine containing products: None Second hand tobacco smoke exposure: No How often do you have a drink containing alcohol: never How often do you have six or more drinks on one occasion: Never AUDIT-C Alcohol total score: 0 Non-prescribed substance use: denies use Caffeine: Yes (soda) service: No Exam Narrative: Exam Narrative: Well-nourished well-developed elderly patient in no acute distress. Alert and oriented x3. Answers questions appropriately. Mood and affect are appropriate. Thoughts are goal oriented and rational. No tangential or magical thinking noted. Patient speaks in full sentences without needing to catch her breath. She is breathing without difficulty, speaking without difficulty. HEENT: Normocephalic atraumatic. Pupils are equally round reactive to light. Extraocular muscles are intact. Conjunctivae are moist without any icterus noted. Moist mucous membranes. Posterior pharynx is normal. Neck is soft without any lymphadenopathy or thyromegaly. No masses are appreciated. No tenderness to palpation of the cervical spine. No pain of the paraspinal musculature. Her TMs are clear bilaterally. Cardiovascular: Heart is regular rate and rhythm S1 and S2 are present without any murmurs. Lungs: Clear to auscultation bilaterally no wheezes rhonchi or rales are appreciated. Patient takes deep breaths without any discomfort- deep breathing does not exacerbate her pain. I cannot reproduce her pain with palpation. Abdomen: Soft and nontender nondistended with normal bowel sounds. Extremities: Bilateral lower extremities with trace edema. Normal DP and PT pulses. Skin: Well perfused. Const: Vital Signs, click to edit/add: Vital Signs - 24 hr 03/27/24 12:51 03/27/24 12:54 03/27/24 13:02 Temperature 98.0 F Pulse Rate 70 69 Pulse Rate [Pulse Oximeter] 68 Respiratory Rate 20 20 18 Blood Pressure 172/81 H 153/75 H Blood Pressure [Ri ght Upper Arm] 172/81 H Pulse Oximetry 96 96 95 Oxygen Delivery Me thod Room Air Room Air Room Air 03/27/24 13:03 03/27/24 13:32 03/27/24 15:26 Temperature Pulse Rate 74 70 Pulse Rate [Pulse Oximeter] Respiratory Rate 20 Blood Pressure 139/82 Blood Pressure [Ri ght Upper Arm] Pulse Oximetry 96 95 92 Oxygen Delivery Me thod Room Air Room Air 03/27/24 15:30 03/27/24 15:32 03/27/24 15:51 Temperature Pulse Rate 69 68 68 Pulse Rate [Pulse Oximeter] Respiratory Rate Blood Pressure 132/75 Blood Pressure [Ri ght Upper Arm] Pulse Oximetry 94 95 95 Oxygen Delivery Me thod 03/27/24 15:54 03/27/24 16:00 Temperature Pulse Rate 71 67 Pulse Rate [Pulse Oximeter] Respiratory Rate Blood Pressure 127/71 Blood Pressure [Ri ght Upper Arm] Pulse Oximetry 95 94 Oxygen Delivery Me thod Course Course ED Course: We will repeat CBC, chemistries and CRP. IV is established and the CT PE protocol is ordered. EKG, read by me, shows normal sinus rhythm with a pulse of 64. She does have inverted T-waves in V4, V5 and V6 which are new from yesterday. CBC is unremarkable. Chemistries are normal except for slightly low potassium at 3.4. CRP is elevated at 5.1 today which is an acute change from yesterday when it was normal. Troponin remains less than 0.01. CT PE protocol was unremarkable as far as PE, did show some mild interstitial edema. Because of her continued pain and elevated CRP, we proceeded with a neck CTA to get a better look at the soft tissue and the vasculature. Of note, because of the double dose of IV contrast, we did give the patient 500 mL of normal saline. This showed: 1. 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 2. Corrugated appearance of the bilateral mid cervical internal carotid arteries, compatible with fibromuscular dysplasia. 3. Chronic lung changes. Did consult with Dr. Charly Zendejas regarding these findings. She stated that this was not something we need to be concerned about today but recommended a daily baby aspirin. Did discuss these findings with the patient who is now, at the time of re-evaluation, currently completely asymptomatic. Vital Signs Vital signs: Initial Vital Signs Temperature 98.0 F 03/27/24 12:51 Temperature Source Temporal Artery Scan 03/27/24 12:51 Pulse Rate 68 03/27/24 12:51 Respiratory Rate 20 03/27/24 12:51 Blood Pressure 172/81 H 03/27/24 12:51 Blood Pressure Mean 111 H 03/27/24 12:51 Blood Pressure Position Supine 03/27/24 12:51 Pulse Oximetry 96 03/27/24 12:51 Oxygen Delivery Method Room Air 03/27/24 12:51 Vital Signs Temperature 98.0 F 03/27/24 12:51 Pulse Rate 68 03/27/24 12:51 Respiratory Rate 20 03/27/24 12:51 Blood Pressure 172/81 H 03/27/24 12:51 Pulse Oximetry 96 03/27/24 12:51 Oxygen Delivery Method Room Air 03/27/24 12:51 Temperature 98.0 F 03/27/24 12:51 Pulse Rate 67 03/27/24 16:00 Respiratory Rate 20 03/27/24 15:26 Blood Pressure 127/71 03/27/24 15:54 Pulse Oximetry 94 03/27/24 16:00 Oxygen Delivery Method Room Air 03/27/24 15:26 Medications Administered Medications: Discontinued Medications Generic Name Dose Route Start Last Admin Trade Name Freq PRN Reason Stop Dose Admin Sodium Chloride 500 mls @ 500 mls/hr 03/27/24 15:47 03/27/24 15:56 0.9 % Sodium Chloride 500 Ml IV 03/27/24 16:46 500 mls/hr .Q1H ONE Administration Medical Decision Making MDM Narrative Medical decision making narrative: 78-year-old female with shoulder, chest and neck pain going on for 2 days. I do not see any evidence of life-threatening causes for her pain. We considered pulmonary embolism, coronary artery disease, pneumonia, pneumothorax, abscess or infection. Recommend heat, gentle stretching. Offered pain medication but patient refused. I do recommend a daily baby aspirin. Medical Records Medical records reviewed: Yes I reviewed the patient's medical records Lab Data Lab results reviewed: Yes I reviewed the patient's lab results Labs: Lab Results 03/27/24 Range/Units 13:20 WBC 7.25 (4.50-11.00) K/uL RBC 4.10 (4.00-5.20) m/uL Hgb 12.2 (12.0-16.0) gm/dL Hct 38.8 (33.0-51.0) % MCV 95 (80-100) fL MCH 30 (26-34) pg MCHC 31 L (32-36) gm/dL RDW Coeff of Miquel 13.3 (11.5-15.5) % Plt Count 230 (140-440) K/uL Neut % (Auto) 76.1 H (42.0-72.0) % Lymph % (Auto) 11.0 L (20-44) % Tucker % (Auto) 10.6 (0.0-11.0) % Eos % (Auto) 1.8 (0.0-7.0) % Baso % (Auto) 0.4 (0.0-3.0) % Neut # (Auto) 5.50 (1.7-7.0) K/uL Lymph # (Auto) 0.80 L (0.90-2.90) K/uL Tucker # (Auto) 0.80 (0.00-0.90) K/UL Eos # (Auto) 0.13 (0.00-0.50) K/uL Baso # (Auto) 0.03 (0.00-0.30) K/uL Abs Immat Gran (auto) 0.01 (0.00-0.30) K/uL Imm/Tot Granulo (auto) 0.1 % Sodium 139 (135-149) mmol/L Potassium 3.4 L (3.6-5.1) mmol/L Chloride 107 (96-114) mmol/L Carbon Dioxide 25 (20-32) mmol/L Anion Gap 7 (7-15) mEq/L BUN 13 (7-30) mg/dL Creatinine 0.6 (0.5-1.5) mg/dL Estimated Creat Clear 43.23 Estimated GFR 92 ml/min Glucose 75 (60-115) mg/dL Calcium 8.6 (8.4-10.6) mg/dL Troponin I < 0.01 L (0.01-0.04) ng/mL C-Reactive Protein 5.1 H (0.5-1.0) mg/dL Imaging Data CT scan - chest: Attestation: I have reviewed the pertinent imaging results. My impression: Study:?CT-Chest Angio PE 95CC ISOVUE 370-03/27/2024 1:42:42 PM Ordering Physician:Kristopher Green Final Report: Indication: Chest pain Technique: CTA chest, pulmonary embolism protocol, utilizing 95 mL Isovue 370 Comparison: None Findings: No appreciable thyroid nodules. There are few prominent mediastinal lymph nodes without pathologic enlargement, likely reactive. The heart is within normal limits in size. No pericardial effusion. Coronary artery calcifications. Aortic valve calcification. Mitral annular calcifications. The thoracic aorta and pulmonary artery are normal in caliber. There is no pulmonary embolism. Mosaic attenuation throughout the lung parenchyma, a nonspecific finding which can be seen with air trapping/edema. Interlobular septal thickening, suggestive of interstitial edema. Subpleural reticulations, which may represent nonspecific interstitial lung disease. The visualized upper abdomen is without acute process. Small hiatal hernia. 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 There are some degenerative changes seen throughout the spine with an age indeterminate compression deformity of the T12 vertebral body with anterior wedging of the T11 vertebral body. Impression: 1. No pulmonary embolism. 2. Mosaic attenuation of the lung parenchyma which can be seen with air trapping/edema and interlobular septal thickening, suggestive of interstitial edema. 3. Subpleural reticulations suggestive of nonspecific interstitial lung disease. CTA neck: Attestation: I have reviewed the pertinent imaging results. Radiologist's impression: Study:?CT-Neck Angio W/ 95CC ISOVUE 370-03/27/2024 3:44:38 PM Ordering Physician:Kristopher Green Preliminary Report: Prelim: CTA neck: 1. 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 2. Corrugated appearance of the bilateral mid cervical internal carotid arteries, compatible with fibromuscular dysplasia. 3. Chronic lung changes. Discharge Plan Discharge Clinical Impression: Atypical chest pain Patient Disposition: Home, Self-Care Condition: Stable Additional Instructions: There is no evidence of any life-threatening conditions causing your pain today. Recommend use heat to the painful areas, gentle stretching daily. If the pain becomes worse, you develop fever or vomiting, you should return to the ER. Do recommend you start taking a daily baby aspirin - you should discuss this with your primary care provider 1st before you start it. Prescriptions: No Action No Known Home Medications Follow Up/Referrals: Sada Newell DO [Primary Care Provider] - Stand Alone Forms: [facility] Info Instructions
[2024-03-27 13:42] LABS: Basophils Absolute Auto 0.03 K/uL (0.00-0.30); Basophils Percent Auto 0.4 % (0.0-3.0); Eosinophils Absolute Auto 0.13 K/uL (0.00-0.50); Eosinophils Percent Auto 1.8 % (0.0-7.0); Hematocrit 38.8 % (33.0-51.0); Hemoglobin* 12.2 gm/dL (12.0-16.0); Immature Granulocytes Abs Auto 0.01 K/uL (0.00-0.30); Immature Granulocytes Pct Auto 0.1 %; Mean Corpuscular HGB Conc 31 gm/dL (32-36); Mean Corpuscular Hemoglobin 30 pg (26-34); Mean Corpuscular Volume 95 fL (80-100); Monocytes Percent Auto 10.6 % (0.0-11.0); Neutrophils Percent Auto 76.1 % (42.0-72.0); Platelet Count* 230 K/uL (140-440); RDW Coefficient of Variation % 13.3 % (11.5-15.5); White Blood Count* 7.25 K/uL (4.50-11.00)
[2024-03-27 13:46] LABS: Slide Review Reflex No
[2024-03-27 13:53] LABS: Chloride* 107 mmol/L (96-114)
[2024-03-27 13:54] LABS: Potassium* 3.4 mmol/L (3.6-5.1); Sodium* 139 mmol/L (135-149)
[2024-03-27 13:57] LABS: Anion Gap 7 mEq/L (7-15); Blood Urea Nitrogen* 13 mg/dL (7-30); Carbon Dioxide* 25 mmol/L (20-32); Creatinine* 0.6 mg/dL (0.5-1.5); Est. Creatinine Clearance* 43.23; Estimated Glomerular Filt Rate 92 ml/min
[2024-03-27 13:58] LABS: Calcium* 8.6 mg/dL (8.4-10.6); Glucose* 75 mg/dL (60-115)
[2024-03-27 14:00] LABS: C Reactive Protein* 5.1 mg/dL (0.5-1.0)
[2024-03-27 14:14] LABS: Troponin I* < 0.01 ng/mL (0.01-0.04)
--- NOTE | 2024-03-27 15:21 | CRLHL7_ITS ---
For Patients: As a result of the Century Cures Act, medical imaging exams and procedure reports are released immediately into your electronic medical record. You may view this report before your referring provider. If you have questions, please contact your health care provider. INDICATION: Neck pain. TECHNIQUE: CTA neck with contrast bolus tracking, 3D angiographic rendering using maximum intensity projection (MIP) and images permanently archived. FINDINGS: There is carotid atherosclerosis. There is a corrugated appearance of the internal carotid arteries consistent with fibromuscular dysplasia. There is no significant carotid artery stenosis or dissection. There is a moderate to severe right vertebral artery origin stenosis. There is no significant left vertebral artery stenosis or dissection. The soft tissues of the neck are within normal limits. The cervical spine is in normal alignment. Degenerative changes are noted in the cervical spine. Extensive fibrotic changes are noted in the visualized lungs. IMPRESSION: 1. Carotid atherosclerosis and fibromuscular dysplasia without significant stenosis. 2. Moderate to severe right vertebral artery origin stenosis. Please note that all CT scans at this facility use dose modulation, iterative reconstruction, and/or weight-based dosing when appropriate to reduce radiation dose to as low as reasonably achievable. Dictated by Chacorta Espinal MD @ 03/27/2024 11:32:08 PM (Electronically Signed)
[2024-03-27] MEDS: 0.9 % SODIUM CHLORIDE 500 ML 500 ML IV (15:56)
== END 2024-03-27 17:20 | disposition home or self-care (01) ==
PROVIDERS: Emergency Provider Family Medicine; PCP Family Medicine
DX: R07.9 Chest pain, unspecified (principal)
CPT/HCPCS: 36415; 70498; 71275; 80048; 84484; 85025; 86140; 93005; 94761; 99284; 99285; J7030; Q9967